=== PATIENT | female | born 1960 | race Caucasian/White ===

== ENCOUNTER 2017-04-03 18:13 | Emergency (ER) | payer BC, OTHER ==
[~2017-04-03] VITALS: Ht 160 cm; Wt 87.7 kg
[~2017-04-03 18:13] MED LIST: ADAL40KI SC; CHOL1000 PO; ECHI1CAP PO; FEXO1TAB49 PO; FSTTS; GLC500 PO; INSDGIPEN SC; INSU32MI13; LANC-333 TOP; LOVA20TA4 PO; LSN25 PO; NVLGI/PEN SC; [UNRECOGNIZED DRUG - CODE]
[2017-04-03 18:21] VITALS: TEMP 37.3; Ht 160 cm; Wt 87.7 kg
--- NOTE | 2017-04-03 18:49 | EMERGENCY ROOM VISIT NOTE ---
History Report prepared by Yoon: Kevin Freeman Under the Supervision of: Dr. Sangita Pollard M.D. First contact with patient: 18:27 Chief Complaint: SORETHROAT Stated Complaint: BAD SORE THROAT, COUGHING UP BLOOD History of Present Illness The patient is a 56 year old female who presents to the Emergency Room with complaints of episodic blood in sputum since this morning. The patient states that she has had a cold since March 07, 2017 and a cough that has not subsided. She reported to her PCP and was prescribed cough medicine, though has had no relief. She states that she woke up this morning to a headache, which she reports is abnormal for her. She currently rates her pain an 8/10 in severity. Per , the patient has been coughing on and off all day and this morning the patient coughed up a small amount of blood mixed with sputum. The patient also notes a sore throat and is unsure if the blood is related to her irritated throat. She denies sweating at night. She notes that she has been eating normally. She denies any recent weight loss. She denies a history of smoking. The patient states that her vaccinations are up-to-date. She notes that she has had a whooping cough vaccination, though is unsure of the date. She denies any fevers. Source of History: patient, spouse/significant other Onset: this morning Position: other (global ) Symptom Intensity: 8/10 Quality: other (blood in sputum) Timing: other (episodic ) Associated Symptoms: + headache, + sorethroat, + cough, No fevers Note: She denies sweating at night. Review of Systems See HPI for pertinent positives & negatives. A total of 10 systems reviewed and were otherwise negative. Past Medical & Surgical Medical Problems: (1) Benign hypertension (2) DKA (diabetic ketoacidoses) (3) Ulcerative colitis Surgical Problems: (1) Status post left hip replacement Family History FH: cancer FH: diabetes mellitus FH: heart disease FH: hypertension Social History Smoking Status: Never Smoker Smokeless Tobacco Use: No Alcohol Use: none Drug Use: none Marital Status: Housing Status: lives with significant other Occupation Status: employed Current/Historical Medications Scheduled Adalimumab (Humira Pen), 40 MG SC Q2 WEEK Cholecalciferol (Vitamin D3), 1,000 INTER.UNIT PO DAILY Cyanocobalamin (Vitamin B12), 1,000 MCG PO QAM Echinacea (Echinacea), 1,000 MG PO DAILY Furosemide (Lasix), 40 MG PO QAM Lisinopril (Lisinopril), 2.5 MG PO QAM Lovastatin (Mevacor), 20 MG PO QPM Metformin Hcl (Glucophage), 500 MG PO BIDM Scheduled PRN Hydrocodone W/ Homatropine (Hycodan 5/1.5MG 5 Ml), 5-10 ML PO Q4H PRN for Cough Allergies Coded Allergies: [place] (Verified Allergy, Unknown, ALLERGY TO ORANGES,NATHANAEL,LIMES, ) Adhesives (Verified Adverse Reaction, Mild, SKIN HOOKER, 04/03/17) Physical Exam Vital Signs Date Time Temp Pulse Resp B/P (MAP) Pulse Ox O2 Delivery O2 Flow Rate FiO2 04/03/17 21:19 80 18 164/71 97 04/03/17 19:23 84 18 164/89 97 Room Air 04/03/17 18:21 37.3 97 18 181/121 97 Room Air Physical Exam Vital signs reviewed. General: Well-appearing, in no significant distress. HEENT: No scleral icterus, PERRLA, neck supple. Atraumatic. Posterior oropharynx is clear. Dry cough. Cardiovascular: Regular rate and rhythm, no extra sounds. Pulmonary: Clear to auscultation bilaterally, normal work of breathing. Abdomen: Soft, nontender, nondistended, positive bowel sounds. Musculoskeletal: Atraumatic, no peripheral edema. Neurologic: Patient awake alert and oriented x 3 Skin: Warm, dry, no rash Medical Decision & Procedures ER Provider Diagnostic Interpretation: Radiology results as stated below per my review and radiologist interpretation: CHEST 2 VIEWS ROUTINE HISTORY: 56 years-old Female cough, hemoptysis acute cough with hemoptysis COMPARISON: Chest radiograph 12/07/2015 TECHNIQUE: PA and lateral views of the chest FINDINGS: Cardiac silhouette is within normal limits. Velocity of the thoracic aorta redemonstrated. No pneumothorax, pleural effusion, focal airspace consolidation or overt pulmonary edema. Bones of the chest appear grossly intact. Mild multilevel endplate spurring of the spine. IMPRESSION: No acute process. The above report was generated using voice recognition software. It may contain grammatical, syntax or spelling errors. Electronically signed by: Cam Brown M.D. 04/03/2017 7:11 PM Dictated Date/Time: 04/03/2017 7:10 PM Laboratory Results 04/03/17 18:47 Red Blood Count 4.73, Mean Corpuscular Volume 82.0, Mean Corpuscular Hemoglobin 28.1, Mean Corpuscular Hemoglobin Concent 34.3, Mean Platelet Volume 9.3, Neutrophils (%) (Auto) 71.0, Lymphocytes (%) (Auto) 19.0, Monocytes (%) (Auto) 8.6, Eosinophils (%) (Auto) 0.9, Basophils (%) (Auto) 0.5, Neutrophils # (Auto) 3.07, Lymphocytes # (Auto) 0.82, Monocytes # (Auto) 0.37, Eosinophils # (Auto) 0.04, Basophils # (Auto) 0.02 04/03/17 18:47 Test 04/03/17 18:47 04/03/17 19:15 White Blood Count 4.32 K/uL (4.8-10.8) Red Blood Count 4.73 M/uL (4.2-5.4) Hemoglobin 13.3 g/dL (12.0-16.0) Hematocrit 38.8 % (37-47) Mean Corpuscular Volume 82.0 fL (80-100) Mean Corpuscular Hemoglobin 28.1 pg (25-34) Mean Corpuscular Hemoglobin Concent 34.3 g/dl (32-36) Platelet Count 275 K/uL (130-400) Mean Platelet Volume 9.3 fL (7.4-10.4) Neutrophils (%) (Auto) 71.0 % Lymphocytes (%) (Auto) 19.0 % Monocytes (%) (Auto) 8.6 % Eosinophils (%) (Auto) 0.9 % Basophils (%) (Auto) 0.5 % Neutrophils # (Auto) 3.07 K/uL (1.4-6.5) Lymphocytes # (Auto) 0.82 K/uL (1.2-3.4) Monocytes # (Auto) 0.37 K/uL (0.11-0.59) Eosinophils # (Auto) 0.04 K/uL (0-0.5) Basophils # (Auto) 0.02 K/uL (0-0.2) RDW Standard Deviation 40.7 fL (36.4-46.3) RDW Coefficient of Variation 13.4 % (11.5-14.5) Immature Granulocyte % (Auto) 0.0 % Immature Granulocyte # (Auto) 0.00 K/uL (0.00-0.02) Anion Gap 4.0 mmol/L (3-11) Est Creatinine Clear Calc Drug Dose 86.9 ml/min Estimated GFR () 102.6 Estimated GFR (Non- 88.5 BUN/Creatinine Ratio 16.9 (10-20) Calcium Level 9.1 mg/dl (8.5-10.1) Total Bilirubin 0.4 mg/dl (0.2-1) Direct Bilirubin < 0.1 mg/dl (0-0.2) Aspartate Amino Transf (AST/SGOT) 17 U/L (15-37) Alanine Aminotransferase (ALT/SGPT) 30 U/L (12-78) Alkaline Phosphatase 85 U/L (45-117) Total Protein 7.5 gm/dl (6.4-8.2) Albumin 3.8 gm/dl (3.4-5.0) Influenza Type A Antigen Neg for Influ A (NEG) Influenza Type B Antigen Neg for Influ B (NEG) Laboratory results per my review. Medications Administered Medications (Trade) Dose Ordered Sig/Dago Route Start Time Stop Time Status Last Admin Dose Admin Albuterol/ Ipratropium (Duoneb) 3 ml NOW STAT INH 04/03/17 20:17 04/03/17 20:20 DC 04/03/17 20:26 3 ML Albuterol (Ventolin Hfa Inhaler) 2 puffs NOW ONCE INH 04/03/17 20:30 04/03/17 20:31 DC 04/03/17 20:26 2 PUFFS ED Course 183: Past medical records reviewed. The patient was evaluated in room C7. A complete history and physical examination was performed. 2017: Ordered DuoNeb 3 ml INH 2029: Ordered Albuterol 2 puffs INH 2102: I reassessed the patient at this time. She is feeling better and resting comfortably. I discussed the results and treatment plan with the patient. I answered all pertaining questions that she had. She expressed understanding and verbalized agreement. The patient will be discharged home. Medical Decision Differential diagnosis: Etiologies such as infections, reactive airway disease, pneumonia, pneumothorax , COPD, CHF, cardiac ischemia, pulmonary embolism, musculoskeletal, gastrointestinal, viral pharyngitis, bronchitis, traumatic pharyngitis, as well as others were entertained. This patient was evaluated and appeared to be in no significant distress. IV access was obtained and laboratory work was drawn. The patient was given a DuoNeb treatment. She did have some improvement. Chest x-ray was obtained and is clear. Laboratory work is unrevealing. Influenza swab is negative. Patient 's blood glucose is 144, slightly elevated. Patient was reevaluated and feeling improved. She was discharged with an albuterol inhaler and Hycodan syrup. She was advised not to drive on this medication. Patient was given 2 days off of work and will follow-up with her PCP for further management. She will return to the ER for worsening of symptoms or any medical concerns. Medication Reconcilliation Current Medication List: was personally reviewed by me Blood Pressure Screening Patient's blood pressure: Elevated blood pressure Blood pressure disposition: Elevated BP felt to be situational Recheck of the patient's blood pressure was normal. Impression Primary Impression: Cough Scribe Attestation The scribe's documentation has been prepared under my direction and personally reviewed by me in its entirety. I confirm that the note above accurately reflects all work, treatment, procedures, and medical decision making performed by me. Departure Information Dispostion Home / Self-Care Prescriptions Hydrocodone W/ Homatropine (HYCODAN 5/1.5MG 5 ML) 1 Syp Syp 5-10 ML PO Q4H Y for Cough, #150 ML Prov: Sangita Pollard M.D. 04/03/17 Referrals No Doctor, Assigned (PCP) Forms HOME CARE DOCUMENTATION FORM, IMPORTANT VISIT INFORMATION Patient Instructions [facility] Additional Instructions Diagnosis: Cough Albuterol 2 puffs every 4 hours as needed for cough, wheeze Hycodan syrup 5-10 mL every 6 hours as needed for cough, do not drive on this medication. Follow up with your doctor this week for reevaluation. Return to the ED for worsening of symptoms or any medical concerns.
[2017-04-03 19:05] LABS: BASO % 0.5 %; BASO ABS # 0.02 K/uL (0-0.2); EOS % 0.9 %; EOS ABS # 0.04 K/uL (0-0.5); HEMATOCRIT 38.8 % (37-47); HEMOGLOBIN 13.3 g/dL (12.0-16.0); LYMPH ABS # 0.82 K/uL (1.2-3.4); MEAN CORPUSCULAR HEMOGLOBIN 28.1 pg (25-34); MEAN CORPUSCULAR HGB CONC 34.3 g/dl (32-36); MEAN PLATELET VOLUME 9.3 fL (7.4-10.4); MONO % 8.6 %; MONO ABS # 0.37 K/uL (0.11-0.59); NEUT ABS # 3.07 K/uL (1.4-6.5); PLATELET COUNT 275 K/uL (130-400); RED CELL DISTRIBUTION WIDTH CV 13.4 % (11.5-14.5); RED CELL DISTRIBUTION WIDTH SD 40.7 fL (36.4-46.3); WHITE BLOOD COUNT 4.32 K/uL (4.8-10.8)
--- NOTE | 2017-04-03 19:13 | DIAGNOSTIC IMAGING REPORT ---
CHEST 2 VIEWS ROUTINE HISTORY: 56 years-old Female cough, hemoptysis acute cough with hemoptysis COMPARISON: Chest radiograph 12/07/2015 TECHNIQUE: PA and lateral views of the chest FINDINGS: Cardiac silhouette is within normal limits. Velocity of the thoracic aorta redemonstrated. No pneumothorax, pleural effusion, focal airspace consolidation or overt pulmonary edema. Bones of the chest appear grossly intact. Mild multilevel endplate spurring of the spine. IMPRESSION: No acute process. The above report was generated using voice recognition software. It may contain grammatical, syntax or spelling errors. Electronically signed by: Cam Brown M.D. 04/03/2017 7:11 PM Dictated Date/Time: 04/03/2017 7:10 PM
[2017-04-03] MEDS ORDERED: FRS/40 PO (19:17)
[2017-04-03] MEDS ORDERED: CYAN100020 PO (19:17)
[2017-04-03] MEDS ORDERED: LSN25 PO (19:17)
[2017-04-03] MEDS ORDERED: GLC/500 PO (19:17)
[2017-04-03 19:22] LABS: ALBUMIN 3.8 gm/dl (3.4-5.0); ALT/SGPT 30 U/L (12-78); AST/SGOT 17 U/L (15-37); BLOOD UREA NITROGEN 13 mg/dl (7-18); CALCIUM 9.1 mg/dl (8.5-10.1); CARBON DIOXIDE 29 mmol/L (21-32); CREATININE 0.75 mg/dl (0.60-1.20); GLUCOSE 144 mg/dl (70-99); POTASSIUM 3.5 mmol/L (3.5-5.1); SODIUM 138 mmol/L (136-145)
[2017-04-03 19:25] LABS: ALKALINE PHOSPHATASE 85 U/L (45-117); TOTAL PROTEIN 7.5 gm/dl (6.4-8.2)
[2017-04-03 20:03] LABS: INFLUENZA B ANTIGEN Neg for Influ B (NEG)
[2017-04-03] MEDS ORDERED: ALBUT/IPRATROP 3MG/0.5MG NEB 3 ML VIAL INH STA (20:17)
[2017-04-03] MEDS ORDERED: ALBUTEROL HFA 8 GM INHALER INH ONE (20:30)
[2017-04-03] MEDS ORDERED: HYDR5SYP11 PO (21:00)
[2017-04-03 21:19] VITALS: BP 164/71; PULSE 80; O2SAT 97
== END 2017-04-03 21:23 | disposition home or self-care (01) ==
LOC: C.EDB 18:15 → C.EDC 21:23
DX: R05 Cough (principal); I10 Essential (primary) hypertension; E11.9 Type 2 diabetes mellitus without complications; Z96.642 Presence of left artificial hip joint; Z80.9 Family history of malignant neoplasm, unspecified; Z83.3 Family history of diabetes mellitus; Z82.49 Family history of ischemic heart disease and other diseases of the circulatory system; Z79.84 Long term (current) use of oral hypoglycemic drugs; Z79.899 Other long term (current) drug therapy

== ENCOUNTER 2022-02-18 10:28 | Inpatient (IN) ==
[2022-02-18 11:10] LABS: Hematocrit (blood only) 41.3 % (34.1-44.9); Hemoglobin 13.1 g/dl (12.0-16.0); Red Blood Count 5.03 M/uL (3.93-5.22); White Blood Count 8.52 K/ul (4.8-10.8)
[2022-02-18 11:26] LABS: INR 1.1 (0.9-1.1); Partial Thromboplastin Time 26.8 Seconds (21.0-31.0); Prothrombin Time 11.2 Seconds (9.0-12.0)
[2022-02-18] MEDS ORDERED: ALBUTEROL HFA 8 GM INHALER INH ONE (11:31)
[2022-02-18 11:32] LABS: Albumin Globulin Ratio 1.1 (0.9-2); Albumin Level 3.7 gm/dl (3.4-5.0); BUN Creatinine Ratio 17.9 (10-20); Bilirubin,Total 0.6 mg/dl (0.2-1.0); Calcium 9.3 mg/dl (8.5-10.1); Creatinine Clr Calc Pharmacy 87.1 ml/min; Est GFR (African American) 109.2 ml/min; Est GFR (Non-African American) 94.2 ml/min; Globulin 3.3 gm/dl (2.5-4.0); Magnesium 1.8 mg/dl (1.7-2.4); Potassium 3.7 mmol/L (3.5-5.1)
--- NOTE | 2022-02-18 11:43 | Emergency Department Note ---
Impression & Plan SOB (shortness of breath), Splenic infarct, Elevated d-dimer, Pulmonary emboli ED Provider Note NAME: SARA YEN AGE: 61 SEX: F : 1960 ARRIVES VIA: Walk-In INFORMANT: [Patient] ED PROVIDER(S): [King Griffith MD] CHIEF COMPLAINT: Abnormal laboratory values HISTORY OF PRESENT ILLNESS: The patient is a 61-year-old female who states that 5 weeks ago she had bronchitis. She was treated with antibiotics, cough syrup and steroids. Everything got better except her dyspnea. She is still short of breath. The shortness of breath is worse with exertion. There is no chest pain. She has not had recent fever. She has no diagnosed underlying lung disease. The patient saw her doctor's office and had laboratory work drawn. Her D-dimer was elevated, she was sent to the ED to rule out PE. She has no history of DVT or PE. No recent surgeries, no recent longer trip by car, plane or train. REVIEW OF SYSTEMS: See HPI for pertinent positives and negatives. A total of ten systems were reviewed and were otherwise negative. PMHx/PSHx: See Below SOCIAL HISTORY: See Below. PHYSICAL EXAM: GENERAL: Patient is in no acute distress. HEENT: No acute trauma, normocephalic atraumatic, mucous membranes moist, no nasal congestion, no scleral icterus. NECK: No stridor, no adenopathy, no meningismus, trachea is midline. LUNGS: Clear to auscultation bilaterally, no wheeze, no rhonchi, breath sounds equal. Breath sounds are diminished bilaterally. HEART: Without murmurs gallops or rubs, regular rate and rhythm. ABDOMEN: Soft, nontender, bowel sounds positive, no peritonitis. EXTREMITIES: No cyanosis, mild bilateral pedal edema, full range of motion of all the joints without pain or difficulty, no signs for acute trauma. NEUROLOGIC: Oriented x 3, no acute motor or sensory deficits, no focal weakness. SKIN: No rash, no jaundice, no diaphoresis. DIFFERENTIAL DIAGNOSIS: Reactive airway disease, pneumonia, RSV, COVID-19, influenza, bronchospasm, pneumothorax, COPD, CHF, infection, cardiac ischemia, pulmonary embolism, bronchitis, as well as other pathologies. EMERGENCY DEPARTMENT COURSE/PROCEDURES: ECG: Indication was shortness of breath. The ECG shows a normal sinus rhythm with a rate of 89. There is some nonspecific ST change. There is no ST elevation. No PVCs. The QTc is 457. Continuous Cardiac Monitoring: An order was placed for continuous cardiac monitoring. The monitor shows a rate of 98 with normal sinus rhythm. Critical Care Note: I have personally spent 43 minutes of critical care time in the direct management of this patient. This includes bedside care, interpretation of diagnostic studies, and testing, discussion with consultants, patient, and family members, and other required patient management activities. This 43 minutes is in excess of all separately billable procedures. MEDICAL DECISION MAKING: There is no leukocytosis or concerning anemia. There is a normal platelet count. No coagulopathy. No renal failure or significant electrolyte abnormality. No concerning liver enzyme elevation. COVID test returned negative. ECG showed a normal sinus rhythm, no ischemia. Cardiac enzyme testing x1 was not consistent with acute cardiac injury. Chest film did not show pneumonia or CHF. Chest CT did show bilateral pulmonary emboli as well as a splenic infarct. The patient presents with over a month of shortness of breath. She appears to have bilateral PEs. 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 The patient received albuterol via [facility]I. She was given a bolus of IV heparin and placed on a heparin drip. I discussed all the findings with her and her family. I did speak with case management, I do think a hospital stay is warranted. The on-call hospitalist has been consulted. Past Med/Surg History Medical History Allergic rhinitis due to pollen DKA (diabetic ketoacidoses) Dyslipidemia Essential hypertension Solitary cyst of breast Type 2 diabetes mellitus Ulcerative colitis Vitamin D deficiency Surgical History History of breast lump/mass excision History of History of incisional hernia repair History of total left hip arthroplasty History of tubal ligation Family History (Updated 02/18/22 @ 15:33 by Mona Calix PA-C) Aunt Cervical cancer Denies family history of Clotting disorder Social History Smoking Status: Never smoker Second Hand Exposure: No; Do You Dip or Chew Tobacco: No; Tobacco Cessation Education Requested by Patient: No Hx Alcohol Use: No Hx Substance Use: No Preferred Language: Latvian Communication Ability: Effective Member Of [employer] Required: No Beliefs That Will Affect Care: None Current Living Situation: Spouse Other Information That Helps Us Care for You: No Feels Safe at Home: Yes Safety Concerns: Feels Safe At This Time Assistive Devices: None Allergies Allergies Allergy/AdvReac Type Severity Reaction Status Date / Time orange Allergy Unknown ALLERGY TO Verified 04/03/17 19:14 ORANGES,NATHANAEL,LIMES adhesive AdvReac Mild SKIN HOOKER Verified 04/03/17 19:14 Home Meds Home Medications Medication Instructions Recorded Confirmed adalimumab 40 mg/0.4 mL 40 mg subcut UD 02/18/22 02/18/22 subcutaneous pen kit (Humira(CF) Pen) atorvastatin 40 mg tablet 40 mg PO DAILY 02/18/22 02/18/22 cholecalciferol (vitamin D3) 25 25 mcg PO DAILY 02/18/22 02/18/22 mcg (1,000 unit) capsule echinacea purpurea extract 125 mg 250 mg PO DAILY 02/18/22 02/18/22 tablet (echinacea) empagliflozin 25 mg tablet 25 mg PO DAILY 02/18/22 02/18/22 (Jardiance) flaxseed oil 1,000 mg capsule 1,000 mg PO BID 02/18/22 02/18/22 furosemide 40 mg tablet 40 mg PO DAILY 02/18/22 02/18/22 irbesartan 75 mg tablet 75 mg PO QPM 02/18/22 02/18/22 mecobalamin (vitamin B12) 1,000 1,000 mcg PO DAILY 02/18/22 02/18/22 mcg chewable tablet (B12 Active) metformin 500 mg tablet 500 mg PO BID 02/18/22 02/18/22 Results & Data (ED) Vital Signs Vital Signs - 24 hr 02/18/22 10:34 02/18/22 10:39 02/18/22 12:28 Temperature 36.7 C Temperature Source Temporal Artery Scan Pulse Rate 98 H Pulse Rate [Apical] 88 Respiratory Rate 20 20 18 Respiratory Effort / Characteristics Non-Labored Non-Labored Spontaneous Respiratory Depth Normal Blood Pressure 126/84 Blood Pressure [Left Arm] 128/73 Blood Pressure Mean 98 Blood Pressure Mean [Left Arm] 91 Pulse Oximetry 94 91 96 Oxygen Delivery Method Room Air Room Air Room Air Sepsis Recent Fever Within 48 Hours No Sepsis New/Unexplained Change in Mental Status N/A Sepsis Action Taken by Nursing No Action Required Home Medications Current Medication List: was personally reviewed by me Laboratory Data Attestation: I reviewed the patient's lab results. Result diagrams: 02/18/22 10:47 02/18/22 10:47 Lab Results 02/18/22 02/18/22 02/18/22 Range/Units 10:47 10:47 10:47 WBC 8.52 (4.8-10.8) K/ul RBC 5.03 (3.93-5.22) M/uL Hgb 13.1 (12.0-16.0) g/dl Hct 41.3 (34.1-44.9) % MCV 82.1 (80.0-100.0) fL MCH 26.0 (25.0-34.0) pg MCHC 31.7 L (32.0-36.0) g/dL RDW Std Deviation 43.5 (36.4-46.3) fL RDW Coeff of Cristobal 14.7 H (11.5-14.5) % Plt Count 378 (130-400) K/uL MPV 9.7 (9.4-12.3) fL Immature Gran % (Auto) 0.5 % Neut % (Auto) 71.8 % Lymph % (Auto) 17.5 % Zavala % (Auto) 8.1 % Eos % (Auto) 1.5 % Baso % (Auto) 0.6 % Neut # (Auto) 6.12 (1.4-6.5) K/uL Lymph # (Auto) 1.49 (1.2-3.4) K/uL Zavala # (Auto) 0.69 (0.24-0.82) K/uL Eos # (Auto) 0.13 (0-0.50) K/uL Baso # (Auto) 0.05 (0-0.2) K/uL Immature Gran # (Auto) 0.04 H (0.00-0.02) K/uL PT 11.2 (9.0-12.0) Seconds INR 1.1 (0.9-1.1) APTT 26.8 (21.0-31.0) Seconds PTT Ratio 1.0 Sodium 140 (136-145) mmol/L Potassium 3.7 (3.5-5.1) mmol/L Chloride 104 (98-107) mmol/L Carbon Dioxide 25 (21-32) mmol/L Anion Gap 11 (3-11) BUN 12 (6-23) mg/dl Creatinine 0.67 (0.6-1.2) mg/dl Est Cr Clr Drug Dosing 87.1 ml/min Est GFR ( Amer) 109.2 ml/min Est GFR (Non-Af Amer) 94.2 ml/min BUN/Creatinine Ratio 17.9 (10-20) Glucose 178 H (70-99(Fasting)) mg/dl Calcium 9.3 (8.5-10.1) mg/dl Magnesium 1.8 (1.7-2.4) mg/dl Total Bilirubin 0.6 (0.2-1.0) mg/dl AST 20 (13-39) U/L ALT 13 (7-52) U/L Alkaline Phosphatase 69 (34-104) U/L Troponin I High Sens (0-14) pg/ml Total Protein 7.0 (6.0-8.3) gm/dl Albumin 3.7 (3.4-5.0) gm/dl Globulin 3.3 (2.5-4.0) gm/dl Albumin/Globulin Ratio 1.1 (0.9-2) 02/18/22 Range/Units 10:47 WBC (4.8-10.8) K/ul RBC (3.93-5.22) M/uL Hgb (12.0-16.0) g/dl Hct (34.1-44.9) % MCV (80.0-100.0) fL MCH (25.0-34.0) pg MCHC (32.0-36.0) g/dL RDW Std Deviation (36.4-46.3) fL RDW Coeff of Cristobal (11.5-14.5) % Plt Count (130-400) K/uL MPV (9.4-12.3) fL Immature Gran % (Auto) % Neut % (Auto) % Lymph % (Auto) % Zavala % (Auto) % Eos % (Auto) % Baso % (Auto) % Neut # (Auto) (1.4-6.5) K/uL Lymph # (Auto) (1.2-3.4) K/uL Zavala # (Auto) (0.24-0.82) K/uL Eos # (Auto) (0-0.50) K/uL Baso # (Auto) (0-0.2) K/uL Immature Gran # (Auto) (0.00-0.02) K/uL PT (9.0-12.0) Seconds INR (0.9-1.1) APTT (21.0-31.0) Seconds PTT Ratio Sodium (136-145) mmol/L Potassium (3.5-5.1) mmol/L Chloride (98-107) mmol/L Carbon Dioxide (21-32) mmol/L Anion Gap (3-11) BUN (6-23) mg/dl Creatinine (0.6-1.2) mg/dl Est Cr Clr Drug Dosing ml/min Est GFR ( Amer) ml/min Est GFR (Non-Af Amer) ml/min BUN/Creatinine Ratio (10-20) Glucose (70-99(Fasting)) mg/dl Calcium (8.5-10.1) mg/dl Magnesium (1.7-2.4) mg/dl Total Bilirubin (0.2-1.0) mg/dl AST (13-39) U/L ALT (7-52) U/L Alkaline Phosphatase (34-104) U/L Troponin I High Sens 6.5 (0-14) pg/ml Total Protein (6.0-8.3) gm/dl Albumin (3.4-5.0) gm/dl Globulin (2.5-4.0) gm/dl Albumin/Globulin Ratio (0.9-2) Administered Medications Heparin Sodium/Dextrose (Heparin Sodium/Dextrose) 25,000 units in 500 mls @ 23 mls/hr IV .[id number] [facility]; Protocol Stop: 03/20/22 12:59 Last Admin: 02/18/22 13:51 Dose: 1,150 units/hr, 23 mls/hr Documented By: GALO Co-signed By: PHYLLIS Insulin Aspart (Insulin Aspart Per Unit) 0 units SC ACHS [facility] Stop: 03/20/22 16:29 Last Admin: 02/18/22 16:36 Dose: Not Given Documented By: CA Discontinued Medications Albuterol (Albuterol Hfa 8 Gm Inhaler) 3 puffs INH NOW ONE Stop: 02/18/22 11:32 Last Admin: 02/18/22 12:09 Dose: 3 puffs Documented By: GALO Heparin Sodium (Porcine) (Heparin Sod (Porcine) 1000 Unit/Ml) 1 units IV NOW ONE Stop: 02/18/22 13:01 Last Admin: 02/18/22 14:02 Dose: Not Given Documented By: GALO Heparin Sodium/Dextrose (Heparin Iv Adult Wt-Based Standard With Bolus Protocol) 1 each IV NOW STA; Protocol Stop: 02/18/22 12:46 Last Admin: 02/18/22 14:02 Dose: Not Given Documented By: GALO Heparin Sodium (Porcine) 5,000 (units/ Syringe) 5 mls @ 10 mls/min IV TODAY@1330 ONE Stop: 02/18/22 13:31 Last Admin: 02/18/22 13:51 Dose: 10 mls/min Documented By: GALO Co-signed By: PHYLLIS Ioversol (Optiray 320 500ml) 110 ml IV ONCE ONE Stop: 02/18/22 12:05 Last Admin: 02/18/22 12:04 Dose: 110 ml Documented By: [facility] Imaging Data Radiologist's Impression: Chest X-Ray 02/18/22 10:39 XR chest 1V portable CLINICAL HISTORY: SOB TECHNIQUE: Single frontal radiograph of the chest was obtained. Comparison: Comparison is made to chest radiograph 08/06/2015 FINDINGS: No lines and tubes are seen. The cardiomediastinal silhouette is normal. Lungs are underinflated but clear. No evidence of pleural effusion or pneumothorax. IMPRESSION: No acute abnormalities and in particular no evidence of pneumonia. ACT 112: Negative or not required by law. Electronically signed by: Regis Christianson M.D. 02/18/2022 11:50 AM Chest CTA 02/18/22 11:30 CT ANGIOGRAM OF THE CHEST CLINICAL HISTORY: Cough and dyspnea COMPARISON STUDY: Chest x-ray dated 02/18/2022. TECHNIQUE: Following the IV administration of 110 cc of Optiray 320, CT angiogram of the chest was performed from the upper abdomen to the thoracic inlet utilizing the pulmonary embolus protocol. Images are reviewed in the axial, sagittal, and coronal planes. 3-D MIPS images are created and assessed. IV contrast was administered without complication. A dose lowering technique was utilized adhering to the principles of ALARA. The examination is compromised by motion artifact. CT DOSE: 428.43 mGycm FINDINGS: Thyroid: Imaged portions of the thyroid gland are normal in size and attenuation. Thoracic aorta: The thoracic aorta is normal in caliber and demonstrates standard 3-vessel arch anatomy. No dissection is seen. Pulmonary vasculature: The pulmonary trunk is normal in caliber. There are segmental and subsegmental pulmonary emboli within branches of the right upper, right lower, left upper, and left lower lobe pulmonary arteries. Heart: The heart is mildly enlarged noting a small pericardial effusion. There are coronary artery calcifications. Lungs and pleural spaces: Evaluation of the lung parenchyma is degraded by motion artifact. The trachea and central airways are clear. There is no airspace consolidation typical for pneumonia. There is a small right pleural effusion with dependent atelectasis. Mediastinum: There is no mediastinal lymphadenopathy. Felicitas: Clear. Axillae: There is no axillary lymphadenopathy. Upper abdomen: Ascites is noted in the upper abdomen. There is a moderate hiatal hernia. 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 A large perfusion defect in the spleen is indeterminant and may represent a l arge infarct. Pathologically enlarged cardiophrenic lymph nodes are seen bilaterally. Noted on the left measures up to 1.4 cm as seen on image #60 and a node on the right measures up to 2.0 cm as seen on image #58. Skeletal structures: The skeletal structures are osteopenic. Degenerative changes noted in the thoracic spine. No lytic or blastic bony lesions are seen. IMPRESSION: 1. There are segmental and subsegmental pulmonary emboli within branches of the upper and lower lobe pulmonary arteries bilaterally. 2. Small right pleural effusion. 3. There is a large perfusion defect identified in the spleen, likely representing a large splenic infarct. 4. Upper abdominal ascites. 5. Pathologically enlarged cardiophrenic lymph nodes are seen bilaterally. Correlate for any oncological history. 6. Additional findings as above. ACT 112: Negative or not required by law. Electronically signed by: King Boyd M.D. 02/18/2022 12:27 PM Discharge Plan Visit Data Chief Complaint: Testing Request Stated Complaint: POSSIBLE BLOOD CLOT IN LUNG, REFERRED FOR TESTING ED Provider: King Griffith Discharge Problem: SOB (shortness of breath), Splenic infarct, Elevated d-dimer, Pulmonary emboli Patient Disposition: Admitted As Inpatient Condition: Serious Discharge Instructions Interventions: ED Discharge Assessment Last Done: 02/18/22 14:50
--- NOTE | 2022-02-18 11:52 | XRay Report ---
XR chest 1V portable CLINICAL HISTORY: SOB TECHNIQUE: Single frontal radiograph of the chest was obtained. Comparison: Comparison is made to chest radiograph 08/06/2015 FINDINGS: No lines and tubes are seen. The cardiomediastinal silhouette is normal. Lungs are underinflated but clear. No evidence of pleural effusion or pneumothorax. IMPRESSION: No acute abnormalities and in particular no evidence of pneumonia. ACT 112: Negative or not required by law. Electronically signed by: Regis Christianson M.D. 02/18/2022 11:50 AM
[2022-02-18] MEDS ORDERED: OPTIRAY 320 500ml IV ONE (12:04)
[2022-02-18 12:28] LABS: Basophils # (auto) 0.05 K/uL (0-0.2); Basophils % (auto) 0.6 %; Eosinophils # (auto) 0.13 K/uL (0-0.50); Eosinophils % (auto) 1.5 %; Immature Granulocytes # (auto) 0.04 K/uL (0.00-0.02); Immature Granulocytes % (auto) 0.5 %; Lymphocytes # (auto) 1.49 K/uL (1.2-3.4); Lymphocytes % (auto) 17.5 %; Mean Corpuscular Hgb Conc 31.7 g/dL (32.0-36.0); Mean Corpuscular Volume 82.1 fL (80.0-100.0); Mean Platelet Volume 9.7 fL (9.4-12.3); Monocytes # (auto) 0.69 K/uL (0.24-0.82); Monocytes % (auto) 8.1 %; Neutrophils # (auto) 6.12 K/uL (1.4-6.5); Neutrophils % (auto) 71.8 %; Platelet Count 378 K/uL (130-400); RDW Coefficient of Variation 14.7 % (11.5-14.5); RDW Standard Deviation 43.5 fL (36.4-46.3)
--- NOTE | 2022-02-18 12:28 | CT Scan Report ---
CT ANGIOGRAM OF THE CHEST CLINICAL HISTORY: Cough and dyspnea COMPARISON STUDY: Chest x-ray dated 02/18/2022. TECHNIQUE: Following the IV administration of 110 cc of Optiray 320, CT angiogram of the chest was pe rformed from the upper abdomen to the thoracic inlet utilizing the pulmonary embolus protocol. Images are reviewed in the axial, sagittal, and coronal planes. 3-D MIPS images are created and assessed. I V contrast was administered without complication. A dose lowering technique was utilized adhering to the principles of ALARA. The examination is compromised by motion artifact. CT DOSE: 428.43 mGycm FINDINGS: Thyroid: Imaged portions of the thyroid gland are normal in size and attenuation. Thoracic aorta: The thoracic aorta is normal in caliber and demonstrates standard 3-vessel arch anato my. No dissection is seen. Pulmonary vasculature: The pulmonary trunk is normal in caliber. There are segmental and subsegmental pulmonary emboli within branches of the right upper, right lower, left upper, and left lower lobe pu lmonary arteries. Heart: The heart is mildly enlarged noting a small pericardial effusion. There are coronary artery ca lcifications. Lungs and pleural spaces: Evaluation of the lung parenchyma is degraded by motion artifact. The trach ea and central airways are clear. There is no airspace consolidation typical for pneumonia. There is a small right pleural effusion with dependent atelectasis. Mediastinum: There is no mediastinal lymphadenopathy. Felicitas: Clear. Axillae: There is no axillary lymphadenopathy. Upper abdomen: Ascites is noted in the upper abdomen. There is a moderate hiatal hernia. A peripheral ly calcified splenic artery aneurysm measures up to 1.7 cm. A large perfusion defect in the spleen is indeterminant and may represent a large infarct. Pathologically enlarged cardiophrenic lymph nodes a re seen bilaterally. Noted on the left measures up to 1.4 cm as seen on image #60 and a node on the r ight measures up to 2.0 cm as seen on image #58. Skeletal structures: The skeletal structures are osteopenic. Degenerative changes noted in the thorac ic spine. No lytic or blastic bony lesions are seen. IMPRESSION: 1. There are segmental and subsegmental pulmonary emboli within branches of the upper and lower lobe pulmonary arteries bilaterally. 2. Small right pleural effusion. 3. There is a large perfusion defect identified in the spleen, likely representing a large splenic in farct. 4. Upper abdominal ascites. 5. Pathologically enlarged cardiophrenic lymph nodes are seen bilaterally. Correlate for any oncologi jovanni history. 6. Additional findings as above. ACT 112: Negative or not required by law. Electronically signed by: King Boyd M.D. 02/18/2022 12:27 PM
[2022-02-18] MEDS ORDERED: Heparin IV Adult Wt-Based Standard WITH Bolus Protocol IV STA (12:45)
[2022-02-18] MEDS ORDERED: HEPARIN SOD (PORCINE) 1000 UNIT/ML IV ONE (13:00)
--- NOTE | 2022-02-18 13:13 | History & Physical Report ---
Date of Service February 18, 2022 Assessment & Plan (1) Bilateral pulmonary embolism: Plan: Pt started with LE edema about two weeks ago. CRUZ has been worsening over the last week. Also with progressive abdominal distention, nausea, dry heaves but denies abdominal pain. +8 lb unintentional wt loss. Outpatient w/u reveleaed elevated D-dimer so pt referred to the ED for evaluation - found to have bilateral PE and a splenic infarct. No clear provoking factor based on history. - Admit to PCU - Currently not requiring O2 but will continue to monitor closely - Heparin gtt with bolus was started in the ED - eventual transition to oral DOAC - ECHO to r/o right heart strain - Check bilateral LE venous duplex - CT abd/pel without contrast due to splenic infarct, new abdominal distention - evaluate for potential malignancy - Hematology evaluation and hypercoaguable work-up as outpatient - Labs in AM (2) Splenic infarct: (3) Ulcerative colitis: Plan: Currently appearse well-controlled. Next dose of Humira is not due until next Tuesday, Feb 27. (4) Type 2 diabetes mellitus: Plan: Holding oral agents while admitted. - Diabetic diet - Insulin sliding scale - BSG ACHS - A1c in AM (5) Essential hypertension: (6) Dyslipidemia: (7) Immunosuppressed status: Plan Continue other home medications as appropriate Pt seen and reviewed with collaborating physician, Dr. De Jesus. Plan of care discussed and as outlined above. Code Status: Full code DVT Prophylaxis: on heparin gtt for bilateral PE Senia Calix PA-C History of Present Illness Chief Complaint: Worsening shortness of breath, cough Primary Care Provider: Chris Camargo MD This is a 61 y/o female with a PMH of UC on Humira, DM2, HTN, dyslipidemia, and seasonal allergies who presented to the ED today after outpatient labs done for CRUZ and cough revealed an elevated D-dimer. Pt reports that she started with sinus and URI symptoms just over a month ago. Then congestion seemed to settle into her chest. Cough has been mostly non-productive and may come in fits. She has tried multiple anti-tussives without relief. About 2-3 weeks ago, she saw PCP office again, was found to have a fever at that visit, and was diagnosed with bronchitis. She reports being treated with antibiotics and steroids but does not feel like this significantly helped. Over the last two weeks, she noticed right > left LE edema, which is new. She has also noted progressive abdominal bloating, nausea, and dry heaves though denies abdominal pain or vomiting. Her bowels have been ~2x/day which she attributed to the recent antibiotics. No blood. She has had an 8 lb unintentional weight loss in the last two weeks as well. She denies chest pain, palpitations, SCOTT, dizziness. She has new back pain today. She denies urinary symptoms - no dysuria, hematuria, urinary frequency. She follows her blood sugars at home and they have been at baseline around 130-160s. No recent prolonged car rides, no recent surgeries, no prior hx of DVT/PE. No family history of clots. Allergies Allergy/AdvReac Type Severity Reaction Status Date / Time orange Allergy Unknown ALLERGY TO Verified 04/03/17 19:14 ORANGES,NATHANAEL,LIMES adhesive AdvReac Mild SKIN HOOKER Verified 04/03/17 19:14 Home Medications Medication Instructions Recorded Confirmed Type adalimumab 40 mg/0.4 mL 40 mg subcut UD 02/18/22 02/18/22 History subcutaneous pen kit (Humira(CF) Pen) atorvastatin 40 mg tablet 40 mg PO DAILY 02/18/22 02/18/22 History cholecalciferol (vitamin D3) 25 25 mcg PO DAILY 02/18/22 02/18/22 History mcg (1,000 unit) capsule echinacea purpurea extract 125 mg 250 mg PO DAILY 02/18/22 02/18/22 History tablet (echinacea) empagliflozin 25 mg tablet 25 mg PO DAILY 02/18/22 02/18/22 History (Jardiance) flaxseed oil 1,000 mg capsule 1,000 mg PO BID 02/18/22 02/18/22 History furosemide 40 mg tablet 40 mg PO DAILY 02/18/22 02/18/22 History irbesartan 75 mg tablet 75 mg PO QPM 02/18/22 02/18/22 History mecobalamin (vitamin B12) 1,000 1,000 mcg PO DAILY 02/18/22 02/18/22 History mcg chewable tablet (B12 Active) metformin 500 mg tablet 500 mg PO BID 02/18/22 02/18/22 History Past Med/Surg History Medical History Allergic rhinitis due to pollen DKA (diabetic ketoacidoses) Dyslipidemia Essential hypertension Solitary cyst of breast Type 2 diabetes mellitus Ulcerative colitis Vitamin D deficiency Surgical History History of breast lump/mass excision History of History of incisional hernia repair History of total left hip arthroplasty History of tubal ligation Family History Aunt Cervical cancer Denies family history of Clotting disorder Social History Smoking Status: Never smoker Second Hand Exposure: No; Do You Dip or Chew Tobacco: No; Tobacco Cessation Education Requested by Patient: No Hx Alcohol Use: No Hx Substance Use: No Preferred Language: Surinamese Communication Ability: Effective Alarm Installation Technician Required: No Beliefs That Will Affect Care: None Current Living Situation: Spouse Other Information That Helps Us Care for You: No Feels Safe at Home: Yes Safety Concerns: Feels Safe At This Time Assistive Devices: None Review of Systems Review of Systems: All systems reviewed & are unremarkable except as noted in HPI & below Constitutional: as per Subjective / HPI, + fatigue, + anorexia and + weight loss Eyes: no diplopia and no worsening vision Ear, Nose, Mouth, Throat: no nasal congestion, no sinus pain/pressure and no sore throat Respiratory: + cough, + dyspnea on exertion and + wheezing; no hemoptysis and no pain on inspiration Cardiovascular: + edema; no chest pain, no palpitations and no syncope Gastrointestinal: + bloating and + nausea (with dry heaves); no abdominal pain and no blood in stools Genitourinary: no dysuria and no hematuria Musculoskeletal: + back pain; no neck pain Integumentary: no yellowing of the skin Neurologic: + generalized weakness; no seizure-like activity, no syncope, no headache(s) and no confusion Psychiatric: no depression and no anxiety Physical Exam Constitutional: well developed and well nourished; no acute distress Eyes: + anicteric sclerae Neck: trachea midline Respiratory: no respiratory distress and no labored breathing Auscultation: lungs clear to auscultation bilaterally; no rales, no rhonchi and no wheezes Cardiovascular: Rate/Rhythm: + tachycardic Vessels: dorsalis pedis pulses present and radial pulses present Extremities: + edema (2+ RLE, 1+ LLE) Gastrointestinal (Abdomen): Inspection/Auscultation: + abdomen distended and normal bowel sounds Percussion/Palpation: abdomen soft and + dullness to percussion (bilateral flanks); abdomen nontender Musculoskeletal: Head/Neck/Chest: normocephalic, head atraumatic and neck supple Skin: no jaundice Neurologic: moves all extremities; no focal motor deficits and not confused Psychiatric: A+Ox3, euthymic affect Results & Data Results & Data ([facility]) Vital Signs (Past 12 Hours) Vital Signs Temp Pulse Resp BP Pulse Ox O2 Del Method 02/18/22 10:39 20 91 Room Air 02/18/22 10:34 36.7 C 98 H 20 126/84 94 Room Air Laboratory Results Laboratory Results - last 24 hr 02/18/22 02/18/22 02/18/22 10:47 10:47 10:47 WBC 8.52 RBC 5.03 Hgb 13.1 Hct 41.3 MCV 82.1 MCH 26.0 MCHC 31.7 L RDW Std Deviation 43.5 RDW Coeff of Cristobal 14.7 H Plt Count 378 MPV 9.7 Immature Gran % (Auto) 0.5 Neut % (Auto) 71.8 Lymph % (Auto) 17.5 [place] % (Auto) 8.1 Eos % (Auto) 1.5 Baso % (Auto) 0.6 Neut # (Auto) 6.12 Lymph # (Auto) 1.49 [place] # (Auto) 0.69 Eos # (Auto) 0.13 Baso # (Auto) 0.05 Immature Gran # (Auto) 0.04 H PT 11.2 INR 1.1 APTT 26.8 PTT Ratio 1.0 Sodium 140 Potassium 3.7 Chloride 104 Carbon Dioxide 25 Anion Gap 11 BUN 12 Creatinine 0.67 Est Cr Clr Drug Dosing 87.1 Est GFR ( Amer) 109.2 Est GFR (Non-Af Amer) 94.2 BUN/Creatinine Ratio 17.9 Glucose 178 H Calcium 9.3 Magnesium 1.8 Total Bilirubin 0.6 AST 20 ALT 13 Alkaline Phosphatase 69 Troponin I High Sens Total Protein 7.0 Albumin 3.7 Globulin 3.3 Albumin/Globulin Ratio 1.1 12/08/22 10:47 WBC RBC Hgb Hct MCV MCH MCHC RDW Std Deviation RDW Coeff of Cristobal Plt Count MPV Immature Gran % (Auto) Neut % (Auto) Lymph % (Auto) [place] % (Auto) Eos % (Auto) Baso % (Auto) Neut # (Auto) Lymph # (Auto) [place] # (Auto) Eos # (Auto) Baso # (Auto) Immature Gran # (Auto) PT INR APTT PTT Ratio Sodium Potassium Chloride Carbon Dioxide Anion Gap BUN Creatinine Est Cr Clr Drug Dosing Est GFR ( Amer) Est GFR (Non-Af Amer) BUN/Creatinine Ratio Glucose Calcium Magnesium Total Bilirubin AST ALT Alkaline Phosphatase Troponin I High Sens 6.5 Total Protein Albumin Globulin Albumin/Globulin Ratio Diagnostic Findings Chest X-ray 02/18/22 - IMPRESSION: No acute abnormalities and in particular no evidence of pneumonia. CTA Chest 02/18/22 - IMPRESSION: 1. There are segmental and subsegmental pulmonary emboli within branches of the upper and lower lobe pulmonary arteries bilaterally. 2. Small right pleural effusion. 3. There is a large perfusion defect identified in the spleen, likely representing a large splenic infarct. 4. Upper abdominal ascites. 5. Pathologically enlarged cardiophrenic lymph nodes are seen bilaterally. Correlate for any oncological history. 6. Additional findings as above. Medications Administered Discontinued Medications Albuterol (Albuterol Hfa 8 Gm Inhaler) 3 puffs INH NOW ONE Stop: 02/18/22 11:32 Last Admin: 02/18/22 12:09 Dose: 3 puffs Documented By: GALO Ioversol (Optiray 320 500ml) 110 ml IV ONCE ONE Stop: 02/18/22 12:05 Last Admin: 02/18/22 12:04 Dose: 110 ml Documented By: [facility] Code Status & VTE Plan VTE Prophylaxis Plan VTE Prophylaxis will be ordered: Yes Supervising Physician Co-Signing Physician Notes I have seen and examined the patient and have discussed the case with the provider above. I agree with the assessment and plan as stated with the following exceptions. 61-year-old female with ulcerative colitis on Humira presented with bilateral PE. She has had symptoms of shortness of breath with exertion for approximately 5 weeks. She also reports a swelling in her right leg compared to her left in the last 2 weeks. She is not currently requiring oxygen and denies any chest pain but has excess significant dyspnea on exertion. She is also noted that her abdomen has become more enlarged and bloated but is not painful over the last 2 weeks. She denies any constipation. She denies any abdominal pain. A CT abdomen pelvis revealed a large mixed solid and cystic pelvic mass possibly consistent with ovarian cancer. She also had large volume ascites presumed to be exudative ascites. As her H&H levels were within normal limits and she was hemodynamically stable, superimposed hemorrhage is considered less likely. She was also found to have a splenic infarct. On physical exam she is well-nourished well-developed and mentating clearly. She has clear lungs auscultation throughout and no evidence of conversational dyspnea. She is sitting in a chair during the exam. Heart rate is regular with a regular rhythm and S1/S2 is heard. There is no evidence of murmur. Abdomen is protuberant but soft and nontender there is no guarding. There is a clear difference in size of the right lower leg compared to the left without edema. Skin is warm and dry. Work-up including labs also revealed a normal CBC with no evidence of white count elevation. She has no evidence of coagulopathy. She has normal renal function and normal electrolytes. Her glucose is controlled. There is no evidence of liver dysfunction. She has a normal highly sensitive troponin and her COVID is negative. Overall this is a 61-year-old immunosuppressed female who presents with bilateral PE and new splenic infarct likely provoked by underlying malignancy, possible ovarian cancer. We will continue heparin with transition to NOAC at discharge. Will consult hematology for assistance with direction. Will most likely need to see [facility] as outpatient within the next 2 weeks. We discussed that this cancer can move quickly and it would be important to not delay investigation or delay exploring treatment options. She was with her daughter and son-in-law when the new abdominal findings were discussed, and all questions were answered to their satisfaction. I will also send a staff message to her primary care doctor requesting a referral to [facility] onc[facility]. She was given the name of Dr. Jose Grant in [facility]. Continue heparin and supportive care. DO Neal.
[2022-02-18] MEDS ORDERED: HEPARIN IV BOLUS 5,000 UNITS in SYRINGE 0 ML IV ONE (13:30)
[2022-02-18] MEDS: HEPARIN SODIUM/DEXTROSE 25,000 UNITS/500 ML BAG IV SCH (13:51)
[2022-02-18] MEDS ORDERED: DEXTROSE 50% 50 ML SYRINGE IV PRN (15:23)
[2022-02-18] MEDS ORDERED: CARBOHYDRATES FOR HYPOGLYCEMIA PO PRN (15:23)
[2022-02-18] MEDS ORDERED: GLUCOSE 40% GEL 15 GM TUBE PO PRN (15:23)
[2022-02-18] MEDS ORDERED: ACETAMINOPHEN 325 MG TAB PO PRN (15:23)
[2022-02-18] MEDS ORDERED: GLUCAGON FOR INJ 1 MG VIAL SQ PRN (15:23)
[2022-02-18] MEDS ORDERED: GLUCOSE 10 TAB/TUBE PO PRN (15:23)
[2022-02-18] MEDS: INSULIN ASPART PER UNIT SC SCH ×2 (16:36→20:42)
--- NOTE | 2022-02-18 17:11 | CT Scan Report ---
CT OF THE ABDOMEN AND PELVIS WITHOUT CONTRAST CLINICAL HISTORY: Splenic infarct, abdominal distention-evaluate for malignancy. COMPARISON STUDY: Chest CT performed earlier today. TECHNIQUE: Axial images of the abdomen and pelvis were obtained without IV contrast. Images were revi ewed in the axial, sagittal, and coronal planes. Automated exposure control was utilized for the isha dy. A dose lowering technique was utilized adhering to the principles of ALARA. FINDINGS: Small right pleural effusion and small hiatal hernia within the lower chest are noted. Ther e are mildly enlarged cardiophrenic angle nodes. Index right cardiophrenic angle node on image [id number] measures 1.9 x 1 cm. Left cardiophrenic angle node measures 1.4 x 1.1 cm. Evaluation of the abdomen and pelvis is suboptimal on this unenhanced exam. There are no hepatic lesi ons. Adrenal glands, pancreas and kidneys are unremarkable. No hydronephrosis. There is excreted cont rast within the collecting systems, ureters and bladder from recent contrast-enhanced CT. There are g allstones within the gallbladder without evidence for acute cholecystitis. A 7.5 cm hypoenhancing spl enic focus likely reflects an infarct. Large volume ascites is noted. Attenuation of the ascites is a pproximately 30 Hounsfield units. Numerous peritoneal/omental implants measure up to approximately 1. 2 cm. There is no evidence for a bowel obstruction. Although difficult to visualize given adjacent as cites on this unenhanced exam, there is suggestion of a large mass within the pelvis extending into t he lower abdomen. This is likely mixed cystic and solid. The mass measures approximately 14 cm. This may be ovarian in etiology. The ovaries are not well delineated on this study. Left hip arthroplasty is noted with associated streak artifact. Several pathologic left external iliac lymph nodes measure up to 2.8 x 2.5 cm. No pneumatosis, free air or portal venous gas is present. No suspicious osseous l esions are noted. There is trace fluid within the small umbilical hernia. IMPRESSION: 1. Large mixed solid and cystic pelvic mass extending into the lower abdomen, suboptimally visualized on this unenhanced exam given adjacent ascites. This is neoplastic and may be ovarian in etiology. A contrast-enhanced CT of the abdomen and pelvis could be obtained for better delineation. 2. Large volume ascites. Increased attenuation of the ascites may be due to malignancy and represent exudative ascites. Superimposed hemorrhage would be difficult to exclude but is considered less likel y. Correlation with H&H levels is recommended. Findings discussed with Dr. De Jesus time of dictation. 3. Omental/peritoneal implants suggestive of peritoneal spread of disease. 4. Pathologic left inguinal and cardiophrenic angle lymph nodes. 5. Suspected splenic infarct, measuring approximately 7.5 cm. ACT 112: Positive. There are findings on this exam that require communication between the performing entity and the patient following Patient Test Result Information Act ([place] Act 112) guidelines. Electronically signed by: Michael Gramajo M.D. 02/18/2022 5:09 PM
[2022-02-18 20:14] LABS: Partial Thromboplastin Ratio 1.3; Partial Thromboplastin Time 36.2 Seconds (21.0-31.0)
[2022-02-18] MEDS ORDERED: HEPARIN IV BOLUS 3,000 UNITS in SYRINGE 0 ML IV ONE (20:30)
[2022-02-18] MEDS: IRBESARTAN 75 MG TAB PO SCH (20:50)
[2022-02-19 02:35] LABS: Basophils # (auto) 0.05 K/uL (0-0.2); Basophils % (auto) 0.6 %; Eosinophils # (auto) 0.21 K/uL (0-0.50); Eosinophils % (auto) 2.6 %; Hematocrit (blood only) 35.8 % (34.1-44.9); Hemoglobin 11.3 g/dl (12.0-16.0); Immature Granulocytes # (auto) 0.02 K/uL (0.00-0.02); Immature Granulocytes % (auto) 0.3 %; Lymphocytes # (auto) 2.54 K/uL (1.2-3.4); Lymphocytes % (auto) 31.9 %; Mean Corpuscular Hemoglobin 25.7 pg (25.0-34.0); Mean Corpuscular Hgb Conc 31.6 g/dL (32.0-36.0); Mean Corpuscular Volume 81.5 fL (80.0-100.0); Mean Platelet Volume 9.6 fL (9.4-12.3); Monocytes # (auto) 0.67 K/uL (0.24-0.82); Monocytes % (auto) 8.4 %; Neutrophils # (auto) 4.47 K/uL (1.4-6.5); Neutrophils % (auto) 56.2 %; Platelet Count 335 K/uL (130-400); RDW Coefficient of Variation 14.6 % (11.5-14.5); RDW Standard Deviation 43.1 fL (36.4-46.3); Red Blood Count 4.39 M/uL (3.93-5.22); White Blood Count 7.96 K/ul (4.8-10.8)
[2022-02-19 03:05] LABS: BUN Creatinine Ratio 23.2 (10-20); Calcium 8.8 mg/dl (8.5-10.1); Creatinine Clr Calc Pharmacy 84.4 ml/min; Est GFR (African American) 108.1 ml/min; Est GFR (Non-African American) 93.3 ml/min; Potassium 3.7 mmol/L (3.5-5.1)
[2022-02-19 03:17] LABS: Partial Thromboplastin Ratio 1.6; Partial Thromboplastin Time 44.7 Seconds (21.0-31.0)
--- NOTE | 2022-02-19 06:21 | Electrocardiogram Report ---
Test Reason : Blood Pressure : / mmHG Vent. Rate : 089 BPM Atrial Rate : 089 BPM P-R Int : 130 ms QRS Dur : 080 ms QT Int : 376 ms P-R-T Axes : -11 028 069 degrees QTc Int : 457 ms Normal sinus rhythm Normal ECG When compared with ECG of 08-DEC-2015 07:25, No significant change was found Confirmed by Avila Mercedes ([id number]) on 02/19/2022 6:21:25 AM Referred By: Chris Camargo Confirmed By:Avila Mercedes
--- NOTE | 2022-02-19 07:15 | Ultrasound Report ---
BILATERAL LOWER EXTREMITY VENOUS DOPPLER HISTORY: Acute pain and swelling of the lower legs RLE>LLE edema, colt PE - r/o DVT COMPARISON STUDY: None. FINDINGS: Right LOWER EXTREMITY: Partially occlusive thrombus within the posterior tibial vein with nonocclusive thrombi within the pe roneal veins. Long segment superficial venous thrombus involves the majority of the greater saphenous vein extending from the confluence with the common femoral vein to the distal calf. Subcutaneous ruthann ma. LEFT LOWER EXTREMITY: Partially occlusive deep venous thrombus involves one of the duplicated posterior tibial veins. No ad ditional deep venous thrombus identified. Subcutaneous edema. IMPRESSION: 1. Bilateral lower extremity DVT. 2. Superficial venous thrombus of the right lower extremity. ACT 112: Negative or not required by law. Electronically signed by: Zackary Brown M.D. 02/19/2022 7:14 AM
[2022-02-19] MEDS: CHOLECALCIFEROL 1,000 UNITS 25 MCG TAB PO SCH (07:48)
[2022-02-19] MEDS: ATORVASTATIN 40 MG TAB PO SCH (07:48)
[2022-02-19] MEDS: CYANOCOBALAMIN (B-12) 500 MCG TABLET PO SCH (07:48)
[2022-02-19] MEDS: FUROSEMIDE 40 MG TAB PO SCH (07:48)
[2022-02-19] MEDS: INSULIN ASPART PER UNIT SC SCH ×4 (07:56→21:29)
[2022-02-19] MEDS: HEPARIN SODIUM/DEXTROSE 25,000 UNITS/500 ML BAG IV SCH (07:56)
--- NOTE | 2022-02-19 07:56 | Consultation ---
Date of Consultation February 19, 2022 Assessment & Plan (1) Pulmonary emboli: Likely "hypercoagulable" in the context of an active malignancy. She seems to have stabilized on intravenous heparin. Given that there may be some upcoming procedures as well as perhaps a small risk of spontaneous bleeding to the abdomen, rather than switch to a DOAC which would have a 36 to 48-hour offset, it might be preferable to consider transition when she is stable to twice daily enoxaparin or even twice daily heparin. This gives us more flexibility for interruption if needed for bleeding events or for future procedures. Anticoagulation will need to continue an open-ended fashion as it it is likely she will have long-term issues with persistent malignancy and the need for ongoing anticoagulation (2) Splenic infarct: Splenic infarct certainly would suggest an additional thrombotic event but on the arterial side. If this is to be connected with a venous thrombus there would be some concern over a PFO and would also have to be concerned about any cardiac abnormalities. Echocardiogram showed only some mild aortic sclerosis and tricuspid regurgitation without any obvious intracardiac source and she is in sinus rhythm. Might be a consideration to augment the echocardiography with a bubble study to assess for PFO.. This would not change the management which will be focused initially on full dose anticoagulation just with respect to the pulmonary emboli but might be important in our understanding of her long-term risks for additional thrombosis events (3) Pelvic mass: Certainly the pelvic mass is suggestive of an ovarian malignancy particularly in the context of ovarian cancer within the family which might be an indicator of a germline high penetrance family cancer syndrome such as BRCA1 or BRCA2 mutation. It would certainly be worthwhile to consider germline mutation in time if we confirm that diagnosis. With a history of ulcerative colitis, she also has an increased risk of colon cancer which can sometimes present as an ovarian cancer like process so-called Krukenberg tumor. With widespread disease even if this is an ovarian cancer she is likely to need initial cytoreductive treatment prior to any consideration for surgery. If we can make a diagnosis with peritoneal cytology that might be sufficient to proceed with systemic treatment and then not have to perform laparotomy until it is time for interval cytoreduction. In provisional discussion with radiology they could as soon as this afternoon perform an ultrasound-guided paracentesis. While that would involve a brief interruption of heparin, I think early diagnosis is going to be well worthwhile especially since they would be content with just a 4-hour interruption of her heparin drip. She does seem to have an advanced presentation but there are cases of ovarian cancer that can respond quite well to treatment with strong long-term outcomes. I have been explicitly careful with the patient and her to not offer that there is any good chance for "cure" but I did indicate some cautious optimism in the ability to achieve and sustain a good response. Even if this proves to be a colon cancer, that is a diagnosis that at least can also be associated with good and sustained responses even in advanced disease for a subset of patients Plan Will need ongoing full dose anticoagulation but as above might want to use interval enoxaparin or subcutaneous heparin rather than going to a DOAC for ongoing short-term flexibility for procedures and the ability to respond to any bleeding episodes Diagnosis will be very important and may be achievable with paracentesis and cytology as above. Could move to that as soon as this afternoon With diagnosis we will better be able to offer prognosis and treatment option discussions but with either ovarian cancer or Krukenberg/colon cancer there is a fair chance of strong response to chemotherapy which can sometimes be quite durable Germline testing will likely be helpful in time especially if we do identify this is an ovarian malignancy History of Present Illness Reason for Consultation: Patient with a history of ulcerative colitis presenting with a pelvic mass ascites and DVT/pulmonary embolism. Attending Physician: Tucker Pena MD History of Present Illness Patient has a history of ulcerative colitis, last colonoscopy was prior to the pandemic with interruptions because of that in the interim. At no time did she ever had a diagnosis of a colon malignancy nor is she aware of any diagnosis of dysplasia. She has a family history with maternal aunt who had ovarian cancer in her 30s and a maternal grandmother who apparently had a metastatic malignancy. There is otherwise no family history of breast, colon, or pancreatic cancer. Patient is a non-smoker with no history of major workplace toxic exposures. She does note that she had a left breast nodule 15 years ago but this was removed and benign, in the interim there is been no suggestion of breast malignancy. There have been no previous major [employer] issues. She had felt well up to Thanksgiving but has had some abdominal bloating and then lower extremity swelling develop in the interim. She had increasing dyspnea and on presentation was found to have bilateral lower extremity DVT, pulmonary emboli, splenic infarct, and a large pelvic mass with ascites and pathologic appearing peritoneal implants as well as regional pathologic adenopathy Allergies Allergy/AdvReac Type Severity Reaction Status Date / Time orange Allergy Unknown ALLERGY TO Verified 04/03/17 19:14 ORANGES,NATHANAEL,LIMES adhesive AdvReac Mild SKIN HOOKER Verified 04/03/17 19:14 Home Medications Medication Instructions Recorded Confirmed Type adalimumab 40 mg/0.4 mL 40 mg subcut UD 02/18/22 02/18/22 History subcutaneous pen kit (Humira(CF) Pen) atorvastatin 40 mg tablet 40 mg PO DAILY 02/18/22 02/18/22 History cholecalciferol (vitamin D3) 25 25 mcg PO DAILY 02/18/22 02/18/22 History mcg (1,000 unit) capsule echinacea purpurea extract 125 mg 250 mg PO DAILY 02/18/22 02/18/22 History tablet (echinacea) empagliflozin 25 mg tablet 25 mg PO DAILY 02/18/22 02/18/22 History (Jardiance) flaxseed oil 1,000 mg capsule 1,000 mg PO BID 02/18/22 02/18/22 History furosemide 40 mg tablet 40 mg PO DAILY 02/18/22 02/18/22 History irbesartan 75 mg tablet 75 mg PO QPM 02/18/22 02/18/22 History mecobalamin (vitamin B12) 1,000 1,000 mcg PO DAILY 02/18/22 02/18/22 History mcg chewable tablet (B12 Active) metformin 500 mg tablet 500 mg PO BID 02/18/22 02/18/22 History Patient History Medical History Allergic rhinitis due to pollen DKA (diabetic ketoacidoses) Dyslipidemia Essential hypertension Solitary cyst of breast Type 2 diabetes mellitus Ulcerative colitis Vitamin D deficiency Surgical History History of breast lump/mass excision History of History of incisional hernia repair History of total left hip arthroplasty History of tubal ligation Family History Aunt Cervical cancer Denies family history of Clotting disorder Social History Smoking Status: Never smoker Second Hand Exposure: No; Do You Dip or Chew Tobacco: No; Tobacco Cessation Education Requested by Patient: No Hx Alcohol Use: No Hx Substance Use: No Preferred Language: Greenlandic Communication Ability: Effective Chain Builder Loom Control Required: No Beliefs That Will Affect Care: None Current Living Situation: Spouse Other Information That Helps Us Care for You: No Feels Safe at Home: Yes Safety Concerns: Feels Safe At This Time Assistive Devices: None Physical Exam Physical Exam: Vital signs are stable, she does have a pulse ox of 90% on room air. She is not tachypneic or showing any signs of dyspnea. Lungs are currently clear percussion auscultation Cardiac rhythm is regular, abdomen is distended but soft without gross focal tenderness or guarding. Cannot clearly delineate any mass. Bilateral lower extremity edema Neurologic exam is completely intact and her mental status is normal with good medical decision-making capacity Results & Data ([facility]) Vital Signs (Past 12 Hours) Vital Signs Temp Pulse Pulse Resp BP Pulse Ox O2 Del Method 02/19/22 02:41 37.1 C 93 H 18 116/81 90 Room Air 02/19/22 01:50 101 H 02/18/22 23:23 36.9 C 90 18 127/84 91 Room Air 02/18/22 19:50 Room Air Laboratory Results Abnormal lab results 02/18/22 02/18/22 02/18/22 Range/Units 10:47 10:47 16:22 Hgb (12.0-16.0) g/dl MCHC 31.7 L (32.0-36.0) g/dL RDW Coeff of Cristobal 14.7 H (11.5-14.5) % Immature Gran # (Auto) 0.04 H (0.00-0.02) K/uL APTT (21.0-31.0) Seconds BUN/Creatinine Ratio (10-20) Glucose 178 H (70-99(Fasting)) mg/dl POC Glucose 129 H (70-99) mg/dl 02/18/22 02/18/22 02/19/22 Range/Units 19:53 20:14 02:12 Hgb 11.3 L (12.0-16.0) g/dl MCHC 31.6 L (32.0-36.0) g/dL RDW Coeff of Cristobal 14.6 H (11.5-14.5) % Immature Gran # (Auto) (0.00-0.02) K/uL APTT 36.2 H (21.0-31.0) Seconds BUN/Creatinine Ratio (10-20) Glucose (70-99(Fasting)) mg/dl POC Glucose 184 H (70-99) mg/dl 02/19/22 02/19/22 Range/Units 02:12 02:12 Hgb (12.0-16.0) g/dl MCHC (32.0-36.0) g/dL RDW Coeff of Cristobal (11.5-14.5) % Immature Gran # (Auto) (0.00-0.02) K/uL APTT 44.7 H (21.0-31.0) Seconds BUN/Creatinine Ratio 23.2 H (10-20) Glucose 147 H (70-99(Fasting)) mg/dl POC Glucose (70-99) mg/dl Diagnostic Findings Chest X-Ray 02/18/22 10:39 XR chest 1V portable CLINICAL HISTORY: SOB TECHNIQUE: Single frontal radiograph of the chest was obtained. Comparison: Comparison is made to chest radiograph 08/06/2015 FINDINGS: No lines and tubes are seen. The cardiomediastinal silhouette is normal. Lungs are underinflated but clear. No evidence of pleural effusion or pneumothorax. IMPRESSION: No acute abnormalities and in particular no evidence of pneumonia. ACT 112: Negative or not required by law. Electronically signed by: Regis Christianson M.D. 02/18/2022 11:50 AM Chest CTA 02/18/22 11:30 CT ANGIOGRAM OF THE CHEST CLINICAL HISTORY: Cough and dyspnea COMPARISON STUDY: Chest x-ray dated 02/18/2022. TECHNIQUE: Following the IV administration of 110 cc of Optiray 320, CT angiogram of the chest was performed from the upper abdomen to the thoracic inlet utilizing the pulmonary embolus protocol. Images are reviewed in the axial, sagittal, and coronal planes. 3-D MIPS images are created and assessed. IV contrast was administered without complication. A dose lowering technique was utilized adhering to the principles of ALARA. The examination is compromised by motion artifact. CT DOSE: 428.43 mGycm FINDINGS: Thyroid: Imaged portions of the thyroid gland are normal in size and attenuation. Thoracic aorta: The thoracic aorta is normal in caliber and demonstrates standard 3-vessel arch anatomy. No dissection is seen. Pulmonary vasculature: The pulmonary trunk is normal in caliber. There are segmental and subsegmental pulmonary emboli within branches of the right upper, right lower, left upper, and left lower lobe pulmonary arteries. Heart: The heart is mildly enlarged noting a small pericardial effusion. There are coronary artery calcifications. Lungs and pleural spaces: Evaluation of the lung parenchyma is degraded by motion artifact. The trachea and central airways are clear. There is no airspace consolidation typical for pneumonia. There is a small right pleural effusion with dependent atelectasis. Mediastinum: There is no mediastinal lymphadenopathy. Felicitas: Clear. Axillae: There is no axillary lymphadenopathy. Upper abdomen: Ascites is noted in the upper abdomen. There is a moderate hiatal hernia. 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 A large perfusion defect in the spleen is indeterminant and may represent a large infarct. Pathologically enlarged cardiophrenic lymph nodes are seen bilaterally. Noted on the left measures up to 1.4 cm as seen on image #60 and a node on the right measures up to 2.0 cm as seen on image #58. Skeletal structures: The skeletal structures are osteopenic. Degenerative changes noted in the thoracic spine. No lytic or blastic bony lesions are seen. IMPRESSION: 1. There are segmental and subsegmental pulmonary emboli within branches of the upper and lower lobe pulmonary arteries bilaterally. 2. Small right pleural effusion. 3. There is a large perfusion defect identified in the spleen, likely representi ng a large splenic infarct. 4. Upper abdominal ascites. 5. Pathologically enlarged cardiophrenic lymph nodes are seen bilaterally. Correlate for any oncological history. 6. Additional findings as above. ACT 112: Negative or not required by law. Electronically signed by: King Boyd M.D. 02/18/2022 12:27 PM Venous Doppler Study 02/18/22 13:42 BILATERAL LOWER EXTREMITY VENOUS DOPPLER HISTORY: Acute pain and swelling of the lower legs RLE>LLE edema, colt PE - r/o DVT COMPARISON STUDY: None. FINDINGS: Right LOWER EXTREMITY: Partially occlusive thrombus within the posterior tibial vein with nonocclusive thrombi within the peroneal veins. Long segment superficial venous thrombus involves the majority of the greater saphenous vein extending from the confluence with the common femoral vein to the distal calf. Subcutaneous edema. LEFT LOWER EXTREMITY: Partially occlusive deep venous thrombus involves one of the duplicated posterior tibial veins. No additional deep venous thrombus identified. Subcutaneous edema. IMPRESSION: 1. Bilateral lower extremity DVT. 2. Superficial venous thrombus of the right lower extremity. ACT 112: Negative or not required by law. Electronically signed by: Zackary Brown M.D. 02/19/2022 7:14 AM Abdomen/Pelvis CT 02/18/22 15:10 CT OF THE ABDOMEN AND PELVIS WITHOUT CONTRAST CLINICAL HISTORY: Splenic infarct, abdominal distention-evaluate for malignancy. COMPARISON STUDY: Chest CT performed earlier today. TECHNIQUE: Axial images of the abdomen and pelvis were obtained without IV contrast. Images were reviewed in the axial, sagittal, and coronal planes. Automated exposure control was utilized for the study. A dose lowering technique was utilized adhering to the principles of ALARA. FINDINGS: Small right pleural effusion and small hiatal hernia within the lower chest are noted. There are mildly enlarged cardiophrenic angle nodes. Index right cardiophrenic angle node on image [id number] measures 1.9 x 1 cm. Left cardiophrenic angle node measures 1.4 x 1.1 cm. Evaluation of the abdomen and pelvis is suboptimal on this unenhanced exam. There are no hepatic lesions. Adrenal glands, pancreas and kidneys are unremarkable. No hydronephrosis. There is excreted contrast within the collecting systems, ureters and bladder from recent contrast-enhanced CT. There are gallstones within the gallbladder without evidence for acute cholecystitis. A 7.5 cm hypoenhancing splenic focus likely reflects an infarct. Large volume ascites is noted. Attenuation of the ascites is approximately 30 Hounsfield units. Numerous peritoneal/omental implants measure up to approximately 1.2 cm. There is no evidence for a bowel obstruction. Although difficult to visualize given adjacent ascites on this unenhanced exam, there is suggestion of a large mass within the pelvis extending into the lower abdomen. This is likely mixed cystic and solid. The mass measures approximately 14 cm. This may be ovarian in etiology. The ovaries are not well delineated on this study. Left hip arthroplasty is noted with associated streak artifact. Several pathologic left external iliac lymph nodes measure up to 2.8 x 2.5 cm. No pneumatosis, free air or portal venous gas is present. No suspicious osseous lesions are noted. There is trace fluid within the small umbilical hernia. IMPRESSION: 1. Large mixed solid and cystic pelvic mass extending into the lower abdomen, suboptimally visualized on this unenhanced exam given adjacent ascites. This is neoplastic and may be ovarian in etiology. A contrast-enhanced CT of the abdomen and pelvis could be obtained for better delineation. 2. Large volume ascites. Increased attenuation of the ascites may be due to malignancy and represent exudative ascites. Superimposed hemorrhage would be difficult to exclude but is considered less likely. Correlation with H&H levels is recommended. Findings discussed with Dr. De eJsus time of dictation. 3. Omental/peritoneal implants suggestive of peritoneal spread of disease. 4. Pathologic left inguinal and cardiophrenic angle lymph nodes. 5. Suspected splenic infarct, measuring approximately 7.5 cm. ACT 112: Positive. There are findings on this exam that require communication between the performing entity and the patient following Patient Test Result Information Act ([place] Act 112) guidelines. Electronically signed by: Michael Gramajo M.D. 02/18/2022 5:09 PM PG Care Time/CCT Total # of Minutes Spent Total Time Spent with Patient: Total time spent is greater than 50% in coordination of care (as documented) at patient's floor/unit and/or counseling patient: [place] [address] Inpt Consult Level 4 Patient Type New History Expanded Problem Focused Exam Expanded Problem Focused Medical Decision Making High Complexity Diagnoses Pulmonary emboli I26.99 Acute cor pulmonale presence: without acute cor pulmonale Chronicity: acute Pulmonary embolism type: unspecified Splenic infarct D73.5 Pelvic mass R19.00 (1) Pulmonary emboli Acute cor pulmonale presence: without acute cor pulmonale Chronicity: acute Pulmonary embolism type: unspecified Qualified Code(s): I26.99 - Other pulmonary embolism without acute cor pulmonale
[2022-02-19 08:38] LABS: Estimated Average Glucose 174 mg/dl; Hemoglobin A1C 7.7 % (4.5-5.6)
[2022-02-19 10:26] LABS: Partial Thromboplastin Ratio 1.5; Partial Thromboplastin Time 40.3 Seconds (21.0-31.0)
--- NOTE | 2022-02-19 10:31 | Hospitalist Progress Note ---
Date of Service February 19, 2022 Assessment & Plan (1) Bilateral pulmonary embolism: Plan: Pt started with LE edema about two weeks ago. CRUZ has been worsening over the last week. Also with progressive abdominal distention, nausea, dry heaves but denies abdominal pain. +8 lb unintentional wt loss. Outpatient w/u reveleaed elevated D-dimer so pt referred to the ED for evaluation - found to have bilateral PE and a splenic infarct. No clear provoking factor based on history. - Admit to PCU - Currently not requiring O2 but will continue to monitor closely - heparin drip started - will hold this morning for paracentesis by oncology to send cytology for diagnosis - will likely switch to lovenox or apixaban for AC on discharge as patient will likely need further interventions going forward - ECHO largely unremarkable with G1DD - bilateral LE venous duplex with bilateral DVTs - CT abd/pel with large mixed solid and cystic pelvic mass with concerns for neoplastic process with omental/peritoneal implants suggestive of spread, as w ell as pathologic left inguinal and cardiophrenic angle LAD - Hematology evaluation and hypercoaguable work-up as outpatient - Labs in AM (2) Splenic infarct: Plan: - AC as above (3) Ulcerative colitis: Plan: Currently appears well-controlled. - Next dose of Humira is not due until next Tuesday, Feb 27. (4) Type 2 diabetes mellitus: Plan: - Holding oral agents while admitted. - Diabetic diet - Insulin sliding scale - BSG ACHS - A1c 7.7% (5) Essential hypertension: Plan: - continue home meds as tolerated (6) Dyslipidemia: Plan: - continue statin (7) Immunosuppressed status: Plan: - noted Plan DVT ppx: heparin drip Code Status: Full code Dispo: PCU Tucker Pena MD Hospital Medicine Admission and Anticipated Discharge Date Admission Date: February 18, 2022 Subjective Patient with UC on Humira, DM2, HTN, HLD found to have bilateral DVTs, bilateral PEs, ovarian mass with enlarged LAD, with high suspicion for ovarian malignancy. Initially started on heparin drip, Heme/onc consulted and recommend paracentesis for cytology to aid in diagnosis. Patient tolerating RA. Patient feels ok and understands the potential implications of her findings. She denies chest pain, shortness of breath, n/v/d, abdominal pain, dysuria. She does report abdominal distension and R>L leg swelling. Review of Systems Review of Systems: All systems reviewed & are unremarkable except as noted in Subjective Physical Exam Physical Exam: Constitutional:L well developed and well nourished; n o acute distress Eyes: anicteric sclerae Neck: trachea midline Respiratory: no respiratory dis tress and no labor ed breathing Ausc ultation: lungs cl ear to auscultatio n bilaterally; no rales, no rhonchi and no wheezes Cardiovascular:L Rate/Rhythm: RRR Vessels: dorsalis pedis pulses prese nt and radial puls es present Extrem ities: + edema (2+ RLE, 1+ LLE) Gastrointestinal ( Abdomen): Inspection/Auscult ation: + abdomen d istended and sarah l bowel sounds Pe rcussion/Palpation : abdomen soft and + dullness to per cussion (bilateral flanks); abdomen nontender Musculoskeletal: Head/Neck/Chest: n ormocephalic, head atraumatic and ne ck supple Skin: no jaundice Neurologic: moves all extremit ies; no focal christian r deficits and not confused Psychiatric: A+Ox3, euthymic af fect Results & Data Results & Data ([facility]) Vital Signs (Past 12 Hours) Vital Signs Temp Pulse Pulse Resp BP Pulse Ox O2 Del Method 02/19/22 08:00 83 02/19/22 08:00 Room Air 02/19/22 08:00 36.9 C 80 18 124/60 98 Room Air 02/19/22 02:41 37.1 C 93 H 18 116/81 90 Room Air 02/19/22 01:50 101 H 02/18/22 23:23 36.9 C 90 18 127/84 91 Room Air Diagnostic Findings Laboratory Results WBC 7.96 K/ul (4.8-10.8) 02/19/22 02:12 RBC 4.39 M/uL (3.93-5.22) 02/19/22 02:12 Hgb 11.3 g/dl (12.0-16.0) L 02/19/22 02:12 Hct 35.8 % (34.1-44.9) 02/19/22 02:12 MCV 81.5 fL (80.0-100.0) 02/19/22 02:12 MCH 25.7 pg (25.0-34.0) 02/19/22 02:12 MCHC 31.6 g/dL (32.0-36.0) L 02/19/22 02:12 RDW Std Deviation 43.1 fL (36.4-46.3) 02/19/22 02:12 RDW Coeff of Cristobal 14.6 % (11.5-14.5) H 02/19/22 02:12 Plt Count 335 K/uL (130-400) 02/19/22 02:12 MPV 9.6 fL (9.4-12.3) 02/19/22 02:12 Immature Gran % (Auto) 0.3 % 02/19/22 02:12 Neut % (Auto) 56.2 % 02/19/22 02:12 Lymph % (Auto) 31.9 % 02/19/22 02:12 [place] % (Auto) 8.4 % 02/19/22 02:12 Eos % (Auto) 2.6 % 02/19/22 02:12 Baso % (Auto) 0.6 % 02/19/22 02:12 Neut # (Auto) 4.47 K/uL (1.4-6.5) 02/19/22 02:12 Lymph # (Auto) 2.54 K/uL (1.2-3.4) 02/19/22 02:12 [place] # (Auto) 0.67 K/uL (0.24-0.82) 02/19/22 02:12 Eos # (Auto) 0.21 K/uL (0-0.50) 02/19/22 02:12 Baso # (Auto) 0.05 K/uL (0-0.2) 02/19/22 02:12 Immature Gran # (Auto) 0.02 K/uL (0.00-0.02) 02/19/22 02:12 PT 11.2 Seconds (9.0-12.0) 02/18/22 10:47 INR 1.1 (0.9-1.1) 02/18/22 10:47 APTT 40.3 Seconds (21.0-31.0) H 02/19/22 10:02 PTT Ratio 1.5 02/19/22 10:02 Sodium 137 mmol/L (136-145) 02/19/22 02:12 Potassium 3.7 mmol/L (3.5-5.1) 02/19/22 02:12 Chloride 104 mmol/L (98-107) 02/19/22 02:12 Carbon Dioxide 24 mmol/L (21-32) 02/19/22 02:12 Anion Gap 9 (3-11) 02/19/22 02:12 BUN 16 mg/dl (6-23) 02/19/22 02:12 Creatinine 0.69 mg/dl (0.6-1.2) 02/19/22 02:12 Est Cr Clr Drug Dosing 84.4 ml/min 02/19/22 02:12 Est GFR ( Amer) 108.1 ml/min 02/19/22 02:12 Est GFR (Non-Af Amer) 93.3 ml/min 02/19/22 02:12 BUN/Creatinine Ratio 23.2 (10-20) H 02/19/22 02:12 Glucose 147 mg/dl (70-99(Fasting)) H 02/19/22 02:12 POC Glucose 121 mg/dl (70-99) H 02/19/22 07:45 Estimat Average Glucose 174 mg/dl 02/19/22 02:12 Hemoglobin A1c 7.7 % (4.5-5.6) H 02/19/22 02:12 Calcium 8.8 mg/dl (8.5-10.1) 02/19/22 02:12 Magnesium 1.8 mg/dl (1.7-2.4) 02/18/22 10:47 Total Bilirubin 0.6 mg/dl (0.2-1.0) 02/18/22 10:47 AST 20 U/L (13-39) 02/18/22 10:47 ALT 13 U/L (7-52) 02/18/22 10:47 Alkaline Phosphatase 69 U/L (34-104) 02/18/22 10:47 Troponin I High Sens 6.5 pg/ml (0-14) 02/18/22 10:47 Total Protein 7.0 gm/dl (6.0-8.3) 02/18/22 10:47 Albumin 3.7 gm/dl (3.4-5.0) 02/18/22 10:47 Globulin 3.3 gm/dl (2.5-4.0) 02/18/22 10:47 Albumin/Globulin Ratio 1.1 (0.9-2) 02/18/22 10:47 SARS-CoV-2, RNA, NAAT NEGATIVE (NEGATIVE) 02/18/22 13:44 Impressions Chest X-Ray 02/18/22 10:39 XR chest 1V portable CLINICAL HISTORY: SOB TECHNIQUE: Single frontal radiograph of the chest was obtained. Comparison: Comparison is made to chest radiograph 08/06/2015 FINDINGS: No lines and tubes are seen. The cardiomediastinal silhouette is normal. Lungs are underinflated but clear. No evidence of pleural effusion or pneumothorax. IMPRESSION: No acute abnormalities and in particular no evidence of pneumonia. ACT 112: Negative or not required by law. Electronically signed by: Regis Christianson M.D. 02/18/2022 11:50 AM Chest CTA 02/18/22 11:30 CT ANGIOGRAM OF THE CHEST CLINICAL HISTORY: Cough and dyspnea COMPARISON STUDY: Chest x-ray dated 02/18/2022. TECHNIQUE: Following the IV administration of 110 cc of Optiray 320, CT angiogram of the chest was performed from the upper abdomen to the thoracic inlet utilizing the pulmonary embolus protocol. Images are reviewed in the axial, sagittal, and coronal planes. 3-D MIPS images are created and assessed. IV contrast was administered without complication. A dose lowering technique was utilized adhering to the principles of ALARA. The examination is compromised by motion artifact. CT DOSE: 428.43 mGycm FINDINGS: Thyroid: Imaged portions of the thyroid gland are normal in size and attenuation. Thoracic aorta: The thoracic aorta is normal in caliber and demonstrates standard 3-vessel arch anatomy. No dissection is seen. Pulmonary vasculature: The pulmonary trunk is normal in caliber. There are segmental and subsegmental pulmonary emboli within branches of the right upper, right lower, left upper, and left lower lobe pulmonary arteries. Heart: The heart is mildly enlarged noting a small pericardial effusion. There are coronary artery calcifications. Lungs and pleural spaces: Evaluation of the lung parenchyma is degraded by motion artifact. The trachea and central airways are clear. There is no airspace consolidation typical for pneumonia. There is a small right pleural effusion with dependent atelectasis. Mediastinum: There is no mediastinal lymphadenopathy. Felicitas: Clear. Axillae: There is no axillary lymphadenopathy. Upper abdomen: Ascites is noted in the upper abdomen. There is a moderate hiatal hernia. 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 A large perfusion defect in the spleen is indeterminant and may represent a large infarct. Pathologically enlarged cardiophrenic lymph nodes are seen bilaterally. Noted on the left measures up to 1.4 cm as seen on image #60 and a node on the right measures up to 2.0 cm as seen on image #58. Skeletal structures: The skeletal structures are osteopenic. Degenerative changes noted in the thoracic spine. No lytic or blastic bony lesions are seen. IMPRESSION: 1. There are segmental and subsegmental pulmonary emboli within branches of the upper and lower lobe pulmonary arteries bilaterally. 2. Small right pleural effusion. 3. There is a large perfusion defect identified in the spleen, likely representing a large splenic infarct. 4. Upper abdominal ascites. 5. Pathologically enlarged cardiophrenic lymph nodes are seen bilaterally. Correlate for any oncological history. 6. Additional findings as above. ACT 112: Negative or not required by law. Electronically signed by: King Boyd M.D. 02/18/2022 12:27 PM Venous Doppler Study 02/18/22 13:42 BILATERAL LOWER EXTREMITY VENOUS DOPPLER HISTORY: Acute pain and swelling of the lower legs RLE>LLE edema, colt PE - r/o DVT COMPARISON STUDY: None. FINDINGS: Right LOWER EXTREMITY: Partially occlusive thrombus within the posterior tibial vein with nonocclusive thrombi within the peroneal veins. Long segment superficial venous thrombus involves the majority of the greater saphenous vein extending from the confluence with the common femoral vein to the distal calf. Subcutaneous edema. LEFT LOWER EXTREMITY: Partially occlusive deep venous thrombus involves one of the duplicated posterior tibial veins. No additional deep venous thrombus identified. Subcutaneous edema. IMPRESSION: 1. Bilateral lower extremity DVT. 2. Superficial venous thrombus of the right lower extremity. ACT 112: Negative or not required by law. Electronically signed by: Zackary Brown M.D. 02/19/2022 7:14 AM Abdomen/Pelvis CT 02/18/22 15:10 CT OF THE ABDOMEN AND PELVIS WITHOUT CONTRAST CLINICAL HISTORY: Splenic infarct, abdominal distention-evaluate for malignancy. COMPARISON STUDY: Chest CT performed earlier today. TECHNIQUE: Axial images of the abdomen and pelvis were obtained without IV contrast. Images were reviewed in the axial, sagittal, and coronal planes. Automated exposure control was utilized for the study. A dose lowering technique was utilized adhering to the principles of ALARA. FINDINGS: Small right pleural effusion and small hiatal hernia within the lower chest are noted. There are mildly enlarged cardiophrenic angle nodes. Index right cardiophrenic angle node on image [id number] measures 1.9 x 1 cm. Left cardiophrenic angle node measures 1.4 x 1.1 cm. Evaluation of the abdomen and pelvis is suboptimal on this unenhanced exam. There are no hepatic lesions. Adrenal glands, pancreas and kidneys are unremarkable. No hydronephrosis. There is excreted contrast within the collecting systems, ureters and bladder from recent contrast-enhanced CT. There are gallstones within the gallbladder without evidence for acute cholecystitis. A 7.5 cm hypoenhancing splenic focus likely reflects an infarct. Large volume ascites is noted. Attenuation of the ascites is approximately 30 Hounsfield units. Numerous peritoneal/omental implants measure up to approximately 1.2 cm. There is no evidence for a bowel obstruction. Although difficult to visualize given adjacent ascites on this unenhanced exam, there is suggestion of a large mass within the pelvis extending into the lower abdomen. This is likely mixed cystic and solid. The mass measures approximately 14 cm. This may be ovarian in etiology. The ovaries are not well delineated on this study. Left hip arthroplasty is noted with associated streak artifact. Several pathologic left external iliac lymph nodes measure up to 2.8 x 2.5 cm. No pneumatosis, free air or portal venous gas is present. No suspicious osseous lesions are noted. There is trace fluid within the small umbilical hernia. IMPRESSION: 1. Large mixed solid and cystic pelvic mass extending into the lower abdomen, suboptimally visualized on this unenhanced exam given adjacent ascites. This is neoplastic and may be ovarian in etiology. A contrast-enhanced CT of the abdomen and pelvis could be obtained for better delineation. 2. Large volume ascites. Increased attenuation of the ascites may be due to malignancy and represent exudative ascites. Superimposed hemorrhage would be difficult to exclude but is considered less likely. Correlation with H&H levels is recommended. Findings discussed with Dr. De Jesus time of dictation. 3. Omental/peritoneal implants suggestive of peritoneal spread of disease. 4. Pathologic left inguinal and cardiophrenic angle lymph nodes. 5. Suspected splenic infarct, measuring approximately 7.5 cm. ACT 112: Positive. There are findings on this exam that require communication between the performing entity and the patient following Patient Test Result Information Act ([place] Act 112) guidelines. Electronically signed by: Michael Gramajo M.D. 02/18/2022 5:09 PM Medications Administered Current Inpatient Medications Acetaminophen (Acetaminophen 325 Mg Tab) 650 mg PO Q4H PRN PRN Reason: Pain or Fever Stop: 03/20/22 15:22 Atorvastatin Calcium (Atorvastatin 40 Mg Tab) 40 mg PO DAILY [facility] Stop: 03/21/22 08:59 Last Admin: 02/19/22 07:48 Dose: 40 mg Cyanocobalamin (Cyanocobalamin (B-12) 500 Mcg Tablet) 1,000 mcg PO DAILY [facility] Stop: 03/21/22 08:59 Last Admin: 02/19/22 07:48 Dose: 1,000 mcg Dextrose (Dextrose 50% 50 Ml Syringe) 25 - 50 ml IV UD PRN; Protocol PRN Reason: Hypoglycemia Protocol Stop: 03/20/22 15:22 Furosemide (Furosemide 40 Mg Tab) 40 mg PO DAILY [facility] Stop: 03/21/22 08:59 Last Admin: 02/19/22 07:48 Dose: 40 mg Glucagon (Glucagon For Inj 1 Mg Vial) 1 mg SQ UD PRN; Protocol PRN Reason: Hypoglycemia Protocol Stop: 03/20/22 15:22 Glucose (Glucose 40% Gel 15 Gm Tube) 15 - 30 gm PO UD PRN; Protocol PRN Reason: Hypoglycemia Protocol Stop: 03/20/22 15:22 Glucose (Glucose 10 Tab/Tube) 4 - 8 tab PO UD PRN; Protocol PRN Reason: Hypoglycemia Treatment Stop: 03/20/22 15:22 Heparin Sodium/Dextrose (Heparin Sodium/Dextrose) 25,000 units in 500 mls @ 27 mls/hr IV .[id number] [facility]; Protocol Stop: 03/20/22 12:59 Last Admin: 02/19/22 07:56 Dose: 1,350 units/hr, 27 mls/hr Insulin Aspart (Insulin Aspart Per Unit) 0 units SC ACHS [facility] Stop: 03/20/22 16:29 Last Admin: 02/19/22 07:56 Dose: 4 units Irbesartan (Irbesartan 75 Mg Tab) 75 mg PO QPM [facility] Stop: 03/20/22 20:59 Last Admin: 02/18/22 20:50 Dose: 75 mg Miscellaneous (Carbohydrates For Hypoglycemia ) 15 - 30 gm PO UD PRN PRN Reason: Hypoglycemia Protocol Stop: 03/20/22 15:22 Vitamin D (Cholecalciferol 1,000 Units 25 Mcg Tab) 1,000 units PO DAILY [facility] Stop: 03/21/22 08:59 Last Admin: 02/19/22 07:48 Dose: 1,000 units
--- NOTE | 2022-02-19 16:02 | Ultrasound Report ---
ULTRASOUND GUIDED DIAGNOSTIC AND THERAPEUTIC PARACENTESIS CLINICAL HISTORY: cytology for ascitic fluid COMPARISON STUDY: CT of the abdomen and pelvis February 18, 2022. PROCEDURE: The risks, benefits, and alternatives to the procedure were discussed with the patient inc luding the risk of bleeding, infection and injury to adjacent structures. The patient agreed to the procedure and informed written consent was obtained. Following real-time ultrasound localization, the skin of the right lower quadrant was prepped and draped. Following local anesthesia with Xylocaine, the sheath paracentesis needle was inserted and approximately 3.2 liters of serosanguineous ascites w as removed by vacuum suction. The patient tolerated the procedure well and no immediate complications were evident. IMPRESSION: Ultrasound-guided paracentesis with removal of 3.2 L of serosanguineous ascites. 1 L of ascites was sent to the laboratory for analysis as ordered. ACT 112: Negative or not required by law. Electronically signed by: Michael Gramajo M.D. 02/19/2022 4:01 PM
[2022-02-19] MEDS: ENOXAPARIN 80 MG/0.8 ML SYR SQ SCH (17:42)
[2022-02-19] MEDS: IRBESARTAN 75 MG TAB PO SCH (20:09)
[2022-02-19] MEDS ORDERED: ENOXAPARIN 1 MG/KG SC SCH (21:00)
[2022-02-19 21:55] LABS: Albumin Peritoneal Fluid 2.9 gm/dl; Total Protein Peritoneal Fluid 4.4 gm/dl
[2022-02-19 22:10] LABS: Appearance Peritoneal Fluid Cloudy; Color Peritoneal Fluid Amber; RBC Peritoneal Fluid Auto 40000 /uL; WBC Peritoneal Fluid Auto 1220 /ul (0-300)
[2022-02-19 22:23] LABS: Lymphocytes, Fluid 54 %; Mono,Macrophage,Mesothelial 44 %; Neutrophils, Fluid 2 %
[2022-02-20] MEDS: ENOXAPARIN 80 MG/0.8 ML SYR SQ SCH (05:20)
[2022-02-20 06:06] LABS: Basophils # (auto) 0.06 K/uL (0-0.2); Eosinophils # (auto) 0.32 K/uL (0-0.50); Eosinophils % (auto) 5.1 %; Hematocrit (blood only) 34.8 % (34.1-44.9); Hemoglobin 11.2 g/dl (12.0-16.0); Immature Granulocytes # (auto) 0.04 K/uL (0.00-0.02); Immature Granulocytes % (auto) 0.6 %; Lymphocytes # (auto) 2.11 K/uL (1.2-3.4); Lymphocytes % (auto) 33.7 %; Mean Corpuscular Hemoglobin 25.6 pg (25.0-34.0); Mean Corpuscular Hgb Conc 32.2 g/dL (32.0-36.0); Mean Corpuscular Volume 79.5 fL (80.0-100.0); Mean Platelet Volume 9.9 fL (9.4-12.3); Monocytes # (auto) 0.63 K/uL (0.24-0.82); Monocytes % (auto) 10.1 %; Neutrophils % (auto) 49.5 %; Platelet Count 358 K/uL (130-400); RDW Coefficient of Variation 14.4 % (11.5-14.5); RDW Standard Deviation 41.8 fL (36.4-46.3); Red Blood Count 4.38 M/uL (3.93-5.22); White Blood Count 6.26 K/ul (4.8-10.8)
[2022-02-20 06:30] LABS: Albumin Globulin Ratio 1.2 (0.9-2); Albumin Level 2.9 gm/dl (3.4-5.0); BUN Creatinine Ratio 26.8 (10-20); Bilirubin,Total 0.6 mg/dl (0.2-1.0); Creatinine Clr Calc Pharmacy 102.4 ml/min; Est GFR (African American) 115.8 ml/min; Est GFR (Non-African American) 99.9 ml/min; Globulin 2.4 gm/dl (2.5-4.0); Magnesium 1.8 mg/dl (1.7-2.4); Phosphorus 2.8 mg/dl (2.5-4.9); Potassium 3.5 mmol/L (3.5-5.1); Total Protein 5.3 gm/dl (6.0-8.3)
[2022-02-20] MEDS: FUROSEMIDE 40 MG TAB PO SCH (08:09)
[2022-02-20] MEDS: ATORVASTATIN 40 MG TAB PO SCH (08:09)
[2022-02-20] MEDS: CHOLECALCIFEROL 1,000 UNITS 25 MCG TAB PO SCH (08:09)
[2022-02-20] MEDS: CYANOCOBALAMIN (B-12) 500 MCG TABLET PO SCH (08:09)
[2022-02-20] MEDS: INSULIN ASPART PER UNIT SC SCH (08:15)
--- NOTE | 2022-02-20 10:30 | Discharge Summary ---
Date of Service February 20, 2022 Admission HPI Per Admitting Provider This is a 61 y/o female with a PMH of UC on Humira, DM2, HTN, dyslipidemia, and seasonal allergies who presented to the ED today after outpatient labs done for CRUZ and cough revealed an elevated D-dimer. Pt reports that she started with sinus and URI symptoms just over a month ago. Then congestion seemed to settle into her chest. Cough has been mostly non-productive and may come in fits. She has tried multiple anti-tussives without relief. About 2-3 weeks ago, she saw PCP office again, was found to have a fever at that visit, and was diagnosed with bronchitis. She reports being treated with antibiotics and steroids but does not feel like this significantly helped. Over the last two weeks, she noticed right > left LE edema, which is new. She has also noted progressive abdominal bloating, nausea, and dry heaves though denies abdominal pain or vomiting. Her bowels have been ~2x/day which she attributed to the recent antibiotics. No blood. She has had an 8 lb unintentional weight loss in the st two weeks as well. She denies chest pain, palpitations, SCOTT, dizziness. She has new back pain today. She denies urinary symptoms - no dysuria, hematuria, urinary frequency. She follows her blood sugars at home and they have been at baseline around 130-160s. No recent prolonged car rides, no recent surgeries, no prior hx of DVT/PE. No family history of clots. Admission Exam Per Admitting Provider Constitutional: well developed and well nourished; no acute distress Eyes: + anicteric sclerae Neck: trachea midline Respiratory: no respiratory distress and no labored breathing Auscultation: lungs clear to auscultation bilaterally; no rales, no rhonchi and no wheezes Cardiovascular: Rate/Rhythm: + tachycardic Vessels: dorsalis pedis pulses present and radial pulses present Extremities: + edema (2+ RLE, 1+ LLE) Gastrointestinal (Abdomen): Inspection/Auscultation: + abdomen distended and normal bowel sounds Percussion/Palpation: abdomen soft and + dullness to percussion (bilateral flanks); abdomen nontender Musculoskeletal: Head/Neck/Chest: normocephalic, head atraumatic and neck supple Skin: no jaundice Neurologic: moves all extremities; no focal motor deficits and not confused Psychiatric: A+Ox3, euthymic affect Principal Diagnosis bilateral segmental and subsegmental PEs, bilateral DVTs, splenic infarct, pelvic mass Discharge Exam Constitutional: well developed and well nourished; no acute distress Eyes: anicteric sclerae Neck: trachea midline Respiratory: no respiratory distress and no labored breathing Auscultation: lungs clear to auscultation bilaterally; no rales, no rhonchi and no wheezes Cardiovascular: Rate/Rhythm: RRR Vessels: dorsalis pedis pulses present and radial pulses present Extremities: + edema (2+ RLE, 1+ LLE) Gastrointestinal (Abdomen): Inspection/Auscultation: + abdomen distended and normal bowel soundsbut improved from admission after paracentesis Percussion/Palpation: abdomen soft and + dullness to percussion (bilateral flanks); abdomen nontender Musculoskeletal: Head/Neck/Chest: normocephalic, head atraumatic and neck supple Skin: no jaundice Neurologic: moves all extremities; no focal motor deficits and not confused Psychiatric: A+Ox3, euthymic affect Discharge Data Allergies Allergy/AdvReac Type Severity Reaction Status Date / Time orange Allergy Unknown ALLERGY TO Verified 04/03/17 19:14 ORANGES,NATHANAEL,LIMES adhesive AdvReac Mild SKIN HOOKER Verified 04/03/17 19:14 Consultations 02/18/22 12:55 ED Decision to Admit Stat 02/18/22 21:44 Consult Oncology Routine Ordered Studies 02/18/22 11:30 CT angio chest PE protocol Stat 02/18/22 13:42 US venous duplex leg [US venous doppler LE BI] Urgent 02/18/22 15:10 CT Abd and Pelvis [CT abd pelvis wo con] Stat 02/19/22 11:53 US paracentesis abd w/image Routine Hospital Course (1) Bilateral pulmonary embolism: Pt started with LE edema about two weeks ago. CRUZ has been worsening over the last week. Also with progressive abdominal distention, nausea, dry heaves but denies abdominal pain. +8 lb unintentional wt loss. Outpatient w/u reveleaed elevated D-dimer so pt referred to the ED for evaluation - found to have bilateral PE and a splenic infarct. No clear provoking factor based on history. - Admit to PCU - Currently not requiring O2 but will continue to monitor closely - heparin drip transitioned to lovenox BID after paracentesis - ECHO largely unremarkable with G1DD - bilateral LE venous duplex with bilateral DVTs - CT abd/pel with large mixed solid and cystic pelvic mass with concerns for neoplastic process with omental/peritoneal implants suggestive of spread, as well as pathologic left inguinal and cardiophrenic angle LAD - s/p paracentesis with cytology pending 02/20/2022 - patient will be discharged and follow up with Oncology - Dr. Park's office will contact patient for appointment likely for 02/24/2022 (2) Splenic infarct: - AC as above (3) Ulcerative colitis: Currently appears well-controlled. - Next dose of Humira is not due until next Tuesday, Feb 27. (4) Type 2 diabetes mellitus: - Holding oral agents while admitted. - Diabetic diet - Insulin sliding scale - BSG ACHS - A1c 7.7% (5) Essential hypertension: - continue home meds as tolerated (6) Dyslipidemia: - continue statin (7) Immunosuppressed status: - noted Plan DVT ppx: heparin drip Code Status: Full code Dispo: PCU - discharge home on lovenox BID and oncology follow up Tucker Pena MD [facility] Medicine Total Time Total Time Spent Total Time Spent (In Minutes): 25 Total Time Includes: Examination of the Patient, Discharge Planning and Medication Reconciliation Discharge Plan Discharge Items Patient Disposition: Home - Self-Care Reason For Visit: BILATERAL PE, SPLENIC INFARCT Discharge Diagnosis: bilateral PE, DVT, pelvic mass Condition on Discharge: Serious Activity: Resume your previous activity Non-emergency contact: Primary Care Provider and Oncologist Call non-emergency contact if: you have any medication questions and your symptoms worsen Follow-up/Referrals: Chris Park MD [Physician] - Chris Camargo MD [Primary Care Provider] - (Date & Time 02/25/2022 3:00 PM Provider Chris Camargo MD Department Family Medicine [facility] ) Diet: Regular Addtl Attending Provider Instructions: You were admitted for blood clots in your lungs and legs as well as spleen. The likely cause of this is an underlying cancer and a mass was found in your pelvis that is concerning for cancer. You had fluid removed from your abdomen that was sent for analysis and results are pending at this time. You saw the oncologist Dr. Park, and were started on a blood thinner called Lovenox to be taken 2x/day. You will be contacted by Dr. Park's office for an appointment next we ek. Pending Studies at Discharge: Yes Studies:: ascetic fluid cytology Stand-Alone Forms: My [facility], Smoking Cessation Medications and DC Order Prescriptions: New enoxaparin [Lovenox] 80 mg/0.8 mL Syringe 80 mg subcut Q12H Qty: 24 0RF Continued furosemide 40 mg tablet 40 mg PO DAILY atorvastatin 40 mg tablet 40 mg PO DAILY metformin 500 mg tablet 500 mg PO BID flaxseed oil 1,000 mg Capsule 1,000 mg PO BID irbesartan 75 mg tablet 75 mg PO QPM cholecalciferol (vitamin D3) 25 mcg (1,000 unit) Capsule 25 mcg PO DAILY echinacea purpurea extract [echinacea] 125 mg Tablet 250 mg PO DAILY Rx Instructions: administer with meals Jardiance 25 mg tablet 25 mg PO DAILY Humira(CF) Pen 40 mg/0.4 mL pen injector kit 40 mg SUBCUT UD Rx Instructions: Every other week mecobalamin (vitamin B12) [B12 Active] 1,000 mcg Tablet,Chewable 1,000 mcg PO DAILY Discharge Orders: Discharge Order (Routine); Ordered 02/20/22 Ordered By: Tucker Connell/Other Patient Handouts: Managing Type 2 Diabetes Admission Data Admit Date/Time: 02/18/22 13:07 Attending Provider: Tucker Pena Admit Provider: Brook De Jesus Primary Care Provider: Chris Camargo Other Providers: Brook De Jesus ; Crhis Park
== END 2022-02-20 11:24 | disposition home or self-care (01) | DRG 299 ==
LOC: ED 10:28 → 2E 13:07 → SUATTDRO 13:07 → 2E 14:50